=== PATIENT | female | born 1965 | race Caucasian/White ===

== ENCOUNTER 2017-07-31 21:15 | Emergency (ER) | payer OTHER ==
[~2017-07-31] VITALS: Ht 167.6 cm; Wt 56.7 kg
[~2017-07-31 21:15] MED LIST: ALBU90OI INH; ALEVE220 MG PO; CHLO25 PO; CLON.1 PO; CLON.2 PO; CLON.3 PO; Crutch1 EACH MISC; FOLI1 PO; FURO40 PO; GABA600 PO; GABA800 PO; LORA1 PO; METPRE4DP PO; Neurontin 100100 MG PO; Neurontin 300300 MG PO; Neurontin800 MG PO; Norco 5-325 Ta1 EACH PO; ONDA4ODT MM; POTA10T PO; POTA8 PO; PROM25 PO; Percocet 5-3251 EACH PO; Prednisone20 MG PO; Prilosec20 MG PO; Protonix40 MG PO; THERA M PLUS T1 EACH PO; THIA100 PO; Vibramycin100 MG PO; Vitamin B-650 MG PO; Zofran Odt4 MG SL
[2017-07-31 21:37] LABS: BASOPHILS ABSOLUTE AUTO 0.12 K/mm3 (0.00-0.23); BASOPHILS PERCENT AUTO 2 % (0-2); EOSINOPHILS ABSOLUTE AUTO 0.23 K/mm3 (0.00-0.68); EOSINOPHILS PERCENT AUTO 3 % (0-6); Hematocrit 48.2 % (33.0-51.0); Hemoglobin 16.6 g/dL (11.5-16.0); IMMATURE GRAN ABSOLUTE AUTO 0.02 K/mm3 (0.00-0.10); IMMATURE GRAN PERCENT AUTO 0 % (0-1); LYMPHOCYTES ABSOLUTE AUTO 3.05 K/mm3 (0.84-5.20); LYMPHOCYTES PERCENT AUTO 45 % (21-46); MONOCYTES ABSOLUTE AUTO 0.42 K/mm3 (0.16-1.47); MONOCYTES PERCENT AUTO 6 % (4-13); Mean Corpuscular HGB 31.9 pg (26.0-34.0); Mean Corpuscular HGB Conc 34.4 g/dL (31.5-36.5); Mean Corpuscular Volume 93 fL (80-100); Mean Platelet Volume 9.4 fL (9.1-12.4); NEUTROPHILS ABSOLUTE AUTO 2.93 K/mm3 (1.96-9.15); NEUTROPHILS PERCENT AUTO 43 % (41-73); Platelet Count 403 K/mm3 (150-400); RDW Coefficient Variation 15.4 % (11.7-14.2); RDW Standard Deviation 52.8 fL (35.1-46.3); White Blood Cell Count 6.77 K/mm3 (4.00-11.30)
[2017-07-31 21:57] LABS: Alanine Aminotransfer (ALT/SGP 55 U/L (12-78); Albumin, Blood 3.4 g/dL (3.4-5.0); Albumin/Globulin Ratio 0.6 (0.8-1.8); Alk Phos 141 U/L (50-136); Anion Gap 11 mmol/L (6-16); Aspartate Aminotrans (AST/SGOT 76 U/L (12-37); Bilirubin, Total 0.2 mg/dL (0.1-1.0); Blood Urea Nitrogen 2 mg/dL (8-24); Bun/Creatinine Ratio 5.5 (12.0-20.0); CO2, Blood 23 mmol/L (21-32); Calcium, Blood 8.4 mg/dL (8.5-10.1); Chloride, Blood 101 mmol/L (98-108); Creatinine, Blood 0.36 mg/dL (0.40-1.00); Globulin, Blood 5.4 g/dL (2.2-4.0); Glomerular Filtration Rate >60 (60-); Glucose, Blood 110 mg/dL (70-99); Potassium, Blood 4.1 mmol/L (3.5-5.5); Sodium, Blood 135 mmol/L (136-145); Total Protein, Blood 8.8 g/dL (6.4-8.2)
[2017-07-31 22:03] LABS: Ethanol (Alcohol), Blood, Med 416 mg/dL
== END 2017-08-01 00:22 | disposition home or self-care (01) ==
LOC: ER 21:15
PROVIDERS: Emergency Medicine
DX: S01.81XA Laceration without foreign body of other part of head, initial encounter (principal); S01.01XA Laceration without foreign body of scalp, initial encounter; F10.129 Alcohol abuse with intoxication, unspecified; Z88.6 Allergy status to analgesic agent; Z88.8 Allergy status to other drugs, medicaments and biological substances; Z79.899 Other long term (current) drug therapy; F17.210 Nicotine dependence, cigarettes, uncomplicated; Y90.8 Blood alcohol level of 240 mg/100 ml or more; W10.8XXA Fall (on) (from) other stairs and steps, initial encounter
CPT/HCPCS: 12001; 36415; 70450; 72125; 80053; 85025; 90471; 90714; 96361; 96374; 99284; G0480; J1170; J3010; J7030

== ENCOUNTER 2018-08-26 14:05 | Inpatient (IN) | payer OTHER ==
[~2018-08-26] VITALS: Ht 162.6 cm; Wt 56.0 kg
[2018-08-26 14:30] LABS: PCO2 Arterial 40.3 mmHg (35-45); PO2 Arterial 50.6 mmHg (80-100); pH Blood Arterial 7.55 (7.35-7.45)
[2018-08-26] MEDS ORDERED: POTA8 PO (14:51)
[2018-08-26 14:52] LABS: Source, Urine Catheter
[2018-08-26 14:59] LABS: Appearance, Urine Hazy (Clear); Blood, Urine 3+ (Neg); Color, Urine Amber (P-Yellow); Glucose Qualitative, Urine Neg (Neg); Ketones, Urine 4+ (Neg); Leukocyte Esterase, Urine 1+ (Neg); Nitrite, Urine Pos (Neg); Protein, Urine 3+ (Neg); Urobilinogen, Urine 4+ (Normal); pH, Urine 6.5 (5.0-8.0)
[2018-08-26 15:00] LABS: CPK Creatine Kinase 63 U/L (26-193); Ethanol (Alcohol), Blood, Med <3 mg/dL; Troponin I 0.017 ng/mL (0.000-0.040)
[2018-08-26 15:23] LABS: U Amphetamine Screen Not Detected; U Barbituate Screen Not Detected; U Benzodiazapine Screen Not Detected; U Buprenorphine Screen Not Detected; U Cannabinoids Screen Not Detected; U Cocaine Screen Not Detected; U Methadone Screen Not Detected; U Methamphetamine Screen Not Detected; U Opiates Screen Not Detected; U Oxycodone Screen Not Detected; U Phencyclidine Screen Not Detected; U Propoxyphene Screen Not Detected
[2018-08-26 15:38] LABS: Alanine Aminotransfer (ALT/SGP 63 U/L (12-78); Albumin, Blood 2.8 g/dL (3.4-5.0); Albumin/Globulin Ratio 0.5 (0.8-1.8); Alk Phos 279 U/L (50-136); Anion Gap 16 mmol/L (6-16); Aspartate Aminotrans (AST/SGOT 261 U/L (12-37); Beta-hydroxybutyrate 44.1 mg/dL (0.2-2.8); Bilirubin, Total 10.4 mg/dL (0.1-1.0); Blood Urea Nitrogen 7 mg/dL (8-24); Bun/Creatinine Ratio 16.5 (12.0-20.0); CO2, Blood 32 mmol/L (21-32); Calcium, Blood 9.5 mg/dL (8.5-10.1); Chloride, Blood 80 mmol/L (98-108); Creatinine, Blood 0.42 mg/dL (0.40-1.00); Globulin, Blood 5.4 g/dL (2.2-4.0); Glomerular Filtration Rate >60 (60-); Glucose, Blood 146 mg/dL (70-99); Potassium, Blood 1.5 mmol/L (3.5-5.5); Sodium, Blood 128 mmol/L (136-145); Total Protein, Blood 8.2 g/dL (6.4-8.2)
[2018-08-26 15:42] LABS: Bilirubin, Urine 3+ (Neg)
[2018-08-26 15:47] LABS: Amorphous Mod (0-Heavy); Squamous Epithelial Cells Few /hpf (Few); White Blood Cells, Urine 0-2 /hpf (0-5)
[2018-08-26 15:48] LABS: Bacteria Many /hpf
[2018-08-26 17:20] LABS: BASOPHILS ABSOLUTE AUTO 0.03 K/mm3 (0.00-0.23); BASOPHILS PERCENT AUTO 1 % (0-2); EOSINOPHILS PERCENT AUTO 0 % (0-6); IMMATURE GRAN ABSOLUTE AUTO 0.26 K/mm3 (0.00-0.10); IMMATURE GRAN PERCENT AUTO 4 % (0-1); LYMPHOCYTES ABSOLUTE AUTO 0.55 K/mm3 (0.84-5.20); LYMPHOCYTES PERCENT AUTO 8 % (21-46); MONOCYTES ABSOLUTE AUTO 0.87 K/mm3 (0.16-1.47); MONOCYTES PERCENT AUTO 13 % (4-13); Mean Corpuscular Volume 91 fL (80-100); NEUTROPHILS ABSOLUTE AUTO 4.86 K/mm3 (1.96-9.15); NEUTROPHILS PERCENT AUTO 74 % (41-73); NRBC ABSOLUTE 0.14 K/mm3 (0.00-0.02); NRBC Auto 2.1 /100 WBC (0.0-0.2); Platelet Count 76 K/mm3 (150-400); RDW Coefficient Variation 14.1 % (11.7-14.2); RDW Standard Deviation 46.6 fL (35.1-46.3); Red Blood Cell Count 3.95 M/mm3 (3.80-5.20); White Blood Cell Count 6.57 K/mm3 (4.00-11.30)
[2018-08-26 17:21] LABS: Hemoglobin 13.9 g/dL (11.5-16.0); Mean Corpuscular HGB 30.9 pg (26.0-34.0)
[2018-08-26 17:22] LABS: Mean Corpuscular HGB Conc 33.9 g/dL (31.5-36.5)
[2018-08-26 17:49] LABS: International Normalized Ratio 1.76; Prothrombin Time Results 17.7 Sec (9.7-11.5)
--- NOTE | 2018-08-26 18:34 | NUR ---
ADMIT PT ARRIVES TO ICU 7 AT 1650 VIA ER GURNEY. PT UNRESPONSIVE EVEN TO STERNAL RUB, ON 15L/MIN NRB, SPO2 >90%, MONITOR SHOWING SINUS RHYTHM WITH HR 90'S, SBP 80-90'S. CALL TO DR. MAHAN WITH CONCERNS OF AIRWAY PROTECTION - ORDERS RECEIVED TO CONSULT DR. AMES. DR. AMES TO BEDSIDE TO EVALUATE PT - STATES DOES NOT WANT TO INTUBATE AT THIS TIME R/T HIGH POTENTIAL FOR CODING DURING INTUBATION WITH CURRENT LAB VALUES OF PT, WILL CONTINUE TO MONITOR PT'S RESPIRATORY STATUS CLOSELY. PT HAS 20G IV TO LEFT CHEST AND 20G FS TO R AC. NS c KCL STARTED PER ORDERS, IVPB KCL STARTED PER ORDERS. SEE ASSESSMENT AND CHART PHOTOS FOR SKIN CONCERNS. TEMP LENZ PROBE PLACED. NG TUBE PLACED TO L NARE. PT'S OXYGEN HAS BEEN TITRATED DOWN TO 4L/MIN NC WITH SPO2 >90%. PT'S KYLEIGH AT BEDSIDE, UPDATED ON PLAN OF CARE. WILL CONTINUE TO MONITOR PT AND GIVE HANDOFF REPORT TO ONCOMING SHIFT.
--- NOTE | 2018-08-26 20:16 | NUR ---
ASSUMED CARE BEDSIDE REPORT RECIEVED. PT IS LAYING IN BED UNRESPONSIVE TO VOICE OR NOXIOUS STIMULI. PT HAS OCCASIONAL GROSS MOVEMENT OF BLE. PT ON 4L O2 NC, SPO2 >90%, RR 26-30. SBP 80-90'S WITH MAP MAINTAINING >65. NGT IN PLACE TO LIS WITH BILE OUTPUT NOTED. NS WITH 20 MEQ K INFUSING AT 150 ML/HR, AND POTASSIUM IVPB INFUSING. IV TO LEFT UPPER CHEST C/D/I, FLUSHING WELL. LENZ IN PLACE WITH DARK YELLOW OUTPUT NOTED. PT WITH SCATTERED BRUISING FROM RECENT FALLS PER . SEE PHOTOS IN CHART. PT APPEARS MILDLY JAUNDICED AND FRAIL OVERALL. DR AMES UPDATED ON PT CONDITION. OK TO CHANGE LACTULOSE TO PER NG TUBE AT THIS TIME. WILL CONTINUE TO MONITOR.
[2018-08-26 23:09] LABS: Anion Gap 13 mmol/L (6-16); Blood Urea Nitrogen 9 mg/dL (8-24); Bun/Creatinine Ratio 24.9 (12.0-20.0); CO2, Blood 31 mmol/L (21-32); Calcium, Blood 9.5 mg/dL (8.5-10.1); Chloride, Blood 90 mmol/L (98-108); Creatinine, Blood 0.36 mg/dL (0.40-1.00); Glomerular Filtration Rate >60 (60-); Glucose, Blood 171 mg/dL (70-99); Potassium, Blood 2.4 mmol/L (3.5-5.5); Sodium, Blood 134 mmol/L (136-145)
--- NOTE | 2018-08-27 05:43 | NUR ---
SHIFT SUMMARY NO ACUTE CHANGES THIS SHIFT. PT HAS REMAINED UNCHANGED IN RESPONSE TO NOXIOUS STIMULI. PT WITH OCCASIONAL MOVEMENTS IN BLE. PT WITH PRODUCTIVE COUGH WITH THICK YELLOW/WHITE SPUTUM. PT ON 4L O2 VIA OXYMIZER. VITAL SIGNS HAVE REMAINED STABLE. SBP 80-90'S THROUGHOUT THE SHIFT. NGT REMAINS IN PLACE, PT RECIEVING LACTULOSE PER TUBE. LENZ REMAINS IN PLACE WITH DARK KEVIN OUTPUT NOTED. NS WITH 20 MEQ K INFUSING AT 150 ML/HR. SPOUSE HAS REMAINED AT BEDSIDE. WILL CONTINUE TO MONITOR AND REPORT OFF TO ONCOMING RN.
[2018-08-27 06:03] LABS: International Normalized Ratio 1.7; Prothrombin Time Results 17.2 Sec (9.7-11.5)
[2018-08-27 06:29] LABS: Alanine Aminotransfer (ALT/SGP 54 U/L (12-78); Albumin, Blood 2.4 g/dL (3.4-5.0); Albumin/Globulin Ratio 0.5 (0.8-1.8); Alk Phos 224 U/L (50-136); Anion Gap 10 mmol/L (6-16); Aspartate Aminotrans (AST/SGOT 205 U/L (12-37); Bilirubin, Total 10.4 mg/dL (0.1-1.0); Blood Urea Nitrogen 7 mg/dL (8-24); Bun/Creatinine Ratio 21.5 (12.0-20.0); CO2, Blood 29 mmol/L (21-32); Calcium, Blood 8.9 mg/dL (8.5-10.1); Chloride, Blood 101 mmol/L (98-108); Creatinine, Blood 0.33 mg/dL (0.40-1.00); Globulin, Blood 4.5 g/dL (2.2-4.0); Glomerular Filtration Rate >60 (60-); Glucose, Blood 151 mg/dL (70-99); Potassium, Blood 2.4 mmol/L (3.5-5.5); Sodium, Blood 140 mmol/L (136-145); Total Protein, Blood 6.9 g/dL (6.4-8.2)
[2018-08-27 06:53] LABS: Hematocrit 32.2 % (33.0-51.0); Mean Corpuscular Volume 93 fL (80-100); Mean Platelet Volume 11.5 fL (9.1-12.4); NRBC ABSOLUTE 0.08 K/mm3 (0.00-0.02); NRBC Auto 0.7 /100 WBC (0.0-0.2); Platelet Count 76 K/mm3 (150-400); RDW Coefficient Variation 14.6 % (11.7-14.2); RDW Standard Deviation 49.6 fL (35.1-46.3); Red Blood Cell Count 3.45 M/mm3 (3.80-5.20); White Blood Cell Count 11.81 K/mm3 (4.00-11.30)
[2018-08-27 06:55] LABS: Hemoglobin 12.1 g/dL (11.5-16.0); Mean Corpuscular HGB 35.1 pg (26.0-34.0); Mean Corpuscular HGB Conc 37.6 g/dL (31.5-36.5)
[2018-08-27 06:59] LABS: BAND PERCENT MAN 15 % (0-8); BASOPHILS PERCENT MAN 0 % (0-2); EOSINOPHILS PERCENT MAN 0 % (0-6); LYMPHOCYTES ABSOLUTE MAN 1.06 K/mm3 (0.84-5.20); LYMPHOCYTES PERCENT MAN 9 % (21-46); MONOCYTES ABSOLUTE MAN 2.12 K/mm3 (0.16-1.47); MONOCYTES PERCENT MAN 18 % (4-13); MYELOCYTE ABSOLUTE MAN 0.11 K/mm3 (0.00-0.00); MYELOCYTE PERCENT MAN 1 % (0-0); SEG NEUTROPHILS PERCENT MAN 57 % (41-73); TOTAL CELLS COUNTED 100
[2018-08-27 07:54] LABS: Beta-hydroxybutyrate 12.2 mg/dL (0.2-2.8)
[2018-08-27 08:07] LABS: Potassium, Blood 1.9 mmol/L (3.5-5.5)
--- NOTE | 2018-08-27 08:15 | NUR ---
PT OBTUNDED. MASCORRO, SOMEWHAT RESTLESS IN BED. DOES NOT OPEN EYES. SWALLOW AND GAG PRESENT, WEAK COUGH. OXYMIZER AT 4L. K+ CRITICAL LOW AT 1.9, DR AMES NOTIFIED. K-RIDER 60MEQ INFUSING PER ORDERS. AT BEDSIDE.
--- NOTE | 2018-08-27 10:43 | NUR ---
DR MEYERS IN TO SEE PT, UPDATE GIVEN.
--- NOTE | 2018-08-27 13:43 | NUR ---
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 Pt is resting in bed, , Iglesia at bedside. Reviewed plan of care with Iglesia. He is very concerned about her, just wants her to get better. He states that patient is "darn near an alcoholic, I am too." Reviewed care with Hue, nurse. She states that they expect the pt to go through ETOH withdrawal soon, if the patient drinks that much. She is currently obtunded. Hue is concerned that the patient will require intubation. Will follow along with patient and family. I introduced Palliative Care to Iglesia and explained our function in the hospital. He is grateful for the support.
--- NOTE | 2018-08-27 16:54 | NUR ---
PT CONTINUES TO SLEEP, RESTLESS IN BED, TURNS SELF FROM SIDE TO SIDE FREQUENTLY, MOVES LEGS AROUND FREQUENTLY. WILL ATTEMPT TO OPEN EYES TO COMMAND, ATTEMPTS TO FOLLOW SIMPLE COMMANDS. PT HAS HAD FREQUENT LIQ STOOLS; FLEXISEAL PLACED W/O DIFF. PER DR AMES; HOLD LACTULOSE AFTER 2 STOOLS. K+ REMAINS CRITICALLY LOW. DR AMES NOTIFED, K+ RIDER INFUSING. PICC PLACED W PT'S HUSBANDS CONSENT. PICC TO SARAH; PLACED W/O DIFFICULTY. PT STARTING TO PULL AT O2 AND NG; MAY NEED TO BE RESTRAINED, PT'S NOTIFIED AND IS AGREEABLE.
--- NOTE | 2018-08-27 19:24 | NUR ---
PT REMAINS RESTLESS, NO IMPROVEMENT IN NEUROLOGICAL STATUS FROM LAST ASSESSMENT. O2 DECREASED TO 2L VIA OXYMIZER. REMAINS AT BEDSIDE.
--- NOTE | 2018-08-27 20:19 | NUR ---
ASSUMED CARE BEDSIDE REPORT RECIEVED. PT IS RESTING QUIETLY UPON ENTERING ROOM. PT OPENS EYES TO VERBAL STIMULI AND IS ABLE TO SPEAK SOME WORDS. PT IS ABLE TO SQUEEZE HANDS UPON COMMAND. VITAL SIGNS STABLE AT THIS TIME, PT ON 2L O2 OXYMIZER. PT WITH SBP CONSISTENTLY 80-90'S, MAP >65. NGT IN PLACE TO LIS. PT WITH PICC TO SARAH WITH LR INFUSING AT 100 ML/HR AND POTASSIUM IVPB INFUSING. LENZ IN PLACE WITH DARK YELLOW/KEVIN OUTPUT NOTED. RECTAL TUBE IN PLACE WITH LOOSE OUTPUT NOTED. PT RESTLESS IN BED AND IS ABLE TO REPOSITION SELF INDEPENDENTLY FOR COMFORT. SPOUSE AT BEDSIDE. WILL CONTINUE TO MONITOR.
[2018-08-27 23:50] LABS: Magnesium, Blood 2.1 mg/dL (1.6-2.4)
--- NOTE | 2018-08-28 04:33 | NUR ---
SHIFT SUMMARY NO ACUTE CHANGES THIS SHIFT. PT CONTINUES TO IMPROVE WITH RESPONSE TO COMMANDS AND IS ABLE TO SPEAK WORDS CLEARLY. PT HAS BEEN RESTING QUIETLY THROUGHOUT MOST OF THE SHIFT. PT HAS REPOSITIONED SELF IN BED INDEPENDENTLY AND ASSISTS WITH TURNS WELL. PT TRANSITIONED TO ROOM AIR, VITAL SIGNS HAVE REMAINED STABLE. NGT REMAINS IN PLACE. PICC TO SARAH C/D/I WITH LR INFUSING AT 100 ML/HR AND POTASSIUM IVPB. LENZ IN PLACE WITH GOOD AMOUNT OF YELLOW URINE OUTPUT NOTED. RECTAL TUBE REMAINS IN PLACE WITH LIQUID BROWN OUTPUT NOTED. LIQUID STOOL LEAKING AROUND RECTAL TUBE AT TIMES. PT SPOUSE HAS REMAINED AT BEDSIDE. WILL CONTINUE TO MONITOR AND REPORT OFF TO ONCOMING RN.
[2018-08-28 07:24] LABS: Base Excess Venous 22.2 mmol/L; Bicarbonate Venous 43.5 mmol/L (24.0-30.0); PCO2 Venous 51.1 mmHg (38-42); pH Blood Venous 7.55 (7.34-7.37)
--- NOTE | 2018-08-28 07:43 | NUR ---
DR AMES CALLED TO NOTIFY OF PT'S HYPOTENSION AND VBG PH OF 7.55. 1 LITER LR FLUID BOLUS ORDERED.
[2018-08-28 07:48] LABS: International Normalized Ratio 1.59; Prothrombin Time Results 16.2 Sec (9.7-11.5)
[2018-08-28 07:53] LABS: BASOPHILS ABSOLUTE AUTO 0.07 K/mm3 (0.00-0.23); BASOPHILS PERCENT AUTO 1 % (0-2); EOSINOPHILS ABSOLUTE AUTO 0.11 K/mm3 (0.00-0.68); EOSINOPHILS PERCENT AUTO 1 % (0-6); IMMATURE GRAN ABSOLUTE AUTO 0.31 K/mm3 (0.00-0.10); IMMATURE GRAN PERCENT AUTO 2 % (0-1); LYMPHOCYTES ABSOLUTE AUTO 1.78 K/mm3 (0.84-5.20); LYMPHOCYTES PERCENT AUTO 13 % (21-46); MONOCYTES PERCENT AUTO 11 % (4-13); Mean Corpuscular Volume 93 fL (80-100); Mean Platelet Volume 11.1 fL (9.1-12.4); NEUTROPHILS ABSOLUTE AUTO 9.84 K/mm3 (1.96-9.15); NEUTROPHILS PERCENT AUTO 72 % (41-73); NRBC ABSOLUTE 0.09 K/mm3 (0.00-0.02); NRBC Auto 0.7 /100 WBC (0.0-0.2); Platelet Count 74 K/mm3 (150-400); RDW Coefficient Variation 14.7 % (11.7-14.2); RDW Standard Deviation 48.6 fL (35.1-46.3); Red Blood Cell Count 3.28 M/mm3 (3.80-5.20); White Blood Cell Count 13.61 K/mm3 (4.00-11.30)
[2018-08-28 07:57] LABS: Alanine Aminotransfer (ALT/SGP 46 U/L (12-78); Albumin, Blood 2.1 g/dL (3.4-5.0); Albumin/Globulin Ratio 0.5 (0.8-1.8); Alk Phos 212 U/L (50-136); Anion Gap 8 mmol/L (6-16); Aspartate Aminotrans (AST/SGOT 169 U/L (12-37); Blood Urea Nitrogen 2 mg/dL (8-24); Bun/Creatinine Ratio 6.6 (12.0-20.0); CO2, Blood 39 mmol/L (21-32); Calcium, Blood 9.3 mg/dL (8.5-10.1); Chloride, Blood 102 mmol/L (98-108); Globulin, Blood 4.3 g/dL (2.2-4.0); Glomerular Filtration Rate >60 (60-); Glucose, Blood 117 mg/dL (70-99); Potassium, Blood 2.5 mmol/L (3.5-5.5); Sodium, Blood 149 mmol/L (136-145); Total Protein, Blood 6.4 g/dL (6.4-8.2)
--- NOTE | 2018-08-28 08:10 | NUR ---
PT AWAKENS TO VOICE. PT ASKS FOR A DRINK OF WATER. MOUTH SWABBED. PT C/O NAUSEA. WILL GIVE ZOFRAN. LEFT EYE CRUSTED OVER AND RED; WARM PACK APPLIED. LITER BOLUS INFUSING.
[2018-08-28 08:12] LABS: Phosphorus, Blood <0.1 mg/dL (2.5-4.9)
--- NOTE | 2018-08-28 08:32 | NUR ---
PT NOW IN A FLUTTER; IN WHICH HE HAS A HISTORY OF. BP STABALIZING. DOPAMINE REMAINS AT 20MCG. WILL TITRATE DOWN TOLERATED
--- NOTE | 2018-08-28 08:54 | NUR ---
ADDITIONAL 500CC LR BOLUS ORDERED AND STARTED.
[2018-08-28 09:00] LABS: Hemoglobin 11.5 g/dL (11.5-16.0); Mean Corpuscular HGB 35.1 pg (26.0-34.0)
[2018-08-28 09:01] LABS: Mean Corpuscular HGB Conc 33.8 g/dL (31.5-36.5)
--- NOTE | 2018-08-28 09:53 | NUR ---
DR AMES AND DR MEYERS IN TO SEE PT, SEE NEW ORDERS. PT INCONTINENT OF LARGE LIQ STOOL. FLEXISEAL LEAKING; REMOVED. ATTENDS PLACED.
--- NOTE | 2018-08-28 11:42 | NUR ---
PT HYPOTENSIVE W MAP IN 40'S. DR AMES NOTIFIED; LEVOPHED GTT TO START.
--- NOTE | 2018-08-28 12:12 | NUR ---
LEVOPHED STARTED AT 5MCG TO KEEP MAP >65. PT SLEEPING, APPEARS COMFORTABLE
--- NOTE | 2018-08-28 13:13 | NUR ---
LEFT EYE CRUSTED OVER; CLEANED W WARM COMPRESS, DROPS APPLIED. ATTENDS CLEAN. PT DENIES C/O PAIN. NO SIGNS OF ETOH W/D OF YET. PT ORIENTED TO SELF AND PLACE. UNABLE TO STATE [place] OR YEAR. LEVOPHED AT 5MCG.
[2018-08-28 14:40] LABS: Hematocrit 29.8 % (33.0-51.0); Hemoglobin 11.1 g/dL (11.5-16.0)
--- NOTE | 2018-08-28 14:58 | NUR ---
PT BECOMING MORE IRRITABLE, ASKING FOR WATER CONSTANTLY, DIFFICULT TO REDIRECT. AT BEDSIDE. PT REMAINS CONFUSED BUT ORIENTED TO SELF. PT HAS NOT TRIED TO CLIMB OUT OF BED AND HAS LEFT TUBES AND LINES ALONE.
--- NOTE | 2018-08-28 15:00 | NUR ---
RADIOLOGY REPORT FROM [facility]ST XRAY STATES PICC TIP IN RIGHT ATRIUM. XRAY REVIEWED WITH DR AMES. PICC APPEARS TO BE IN CAJ WHICH IS OPTIMAL PLACEMENT. NO ECTOPY NOTED. WILL LEAVE PICC AT 6CM EXPOSED.
[2018-08-28 15:07] LABS: Albumin, Blood 2.1 g/dL (3.4-5.0); Anion Gap 6 mmol/L (6-16); Blood Urea Nitrogen 2 mg/dL (8-24); Bun/Creatinine Ratio 8.4 (12.0-20.0); CO2, Blood 43 mmol/L (21-32); Calcium, Blood 8.5 mg/dL (8.5-10.1); Chloride, Blood 95 mmol/L (98-108); Creatinine, Blood 0.24 mg/dL (0.40-1.00); Glomerular Filtration Rate >60 (60-); Glucose, Blood 165 mg/dL (70-99); Phosphorus, Blood 0.8 mg/dL (2.5-4.9); Potassium, Blood 2.2 mmol/L (3.5-5.5); Sodium, Blood 144 mmol/L (136-145)
--- NOTE | 2018-08-28 15:29 | NUR ---
CRITICAL LOW K+ OF 2.2, AND PHOS 0.8. DR AMES NOTIFIED. [facility] R[facility] ORDERED
--- NOTE | 2018-08-28 20:30 | NUR ---
ASSUMED CARE BEDSIDE REPORT RECIEVED. PT IS RESTING QUIETLY IN BED. PT AWAKENS TO VERBAL STIMULI AND IS ABLE TO SPEAK WELL AND FOLLOW DIRECTIONS. PT IS CONFUSED AND LETHARGIC. PT IS CONTINUALLY ASKING FOR WATER DESPITE REDIRECTION AND EDUCATION. PT ON ROOM AIR. NGT IN PLACE TO LIS WITH BILE OUTPUT NOTED. PICC TO SARAH C/D/I WITH LR INFUSING AT 150 ML/HR, LEVOPHED AT 6 MCG/KG/MIN. KPHOS IVPB INFUSING. LENZ IN PLACE WITH YELLOW OUTPUT NOTED. PT CONTINUES TO HAVE LOOSE STOOL OUTPUT. PT SPOUSE AT BEDSIDE. WILL CONTINUE TO MONITOR.
[2018-08-28 22:01] LABS: Phosphorus, Blood 1.2 mg/dL (2.5-4.9); Potassium, Blood 2.3 mmol/L (3.5-5.5)
[2018-08-29 04:27] LABS: BASOPHILS ABSOLUTE AUTO 0.06 K/mm3 (0.00-0.23); BASOPHILS PERCENT AUTO 1 % (0-2); EOSINOPHILS ABSOLUTE AUTO 0.13 K/mm3 (0.00-0.68); EOSINOPHILS PERCENT AUTO 1 % (0-6); Hematocrit 28.6 % (33.0-51.0); Hemoglobin 10.5 g/dL (11.5-16.0); IMMATURE GRAN ABSOLUTE AUTO 0.44 K/mm3 (0.00-0.10); IMMATURE GRAN PERCENT AUTO 4 % (0-1); LYMPHOCYTES ABSOLUTE AUTO 2.29 K/mm3 (0.84-5.20); LYMPHOCYTES PERCENT AUTO 18 % (21-46); MONOCYTES ABSOLUTE AUTO 1.59 K/mm3 (0.16-1.47); MONOCYTES PERCENT AUTO 13 % (4-13); Mean Corpuscular HGB Conc 36.7 g/dL (31.5-36.5); Mean Corpuscular Volume 95 fL (80-100); Mean Platelet Volume 11.3 fL (9.1-12.4); NEUTROPHILS ABSOLUTE AUTO 7.94 K/mm3 (1.96-9.15); NEUTROPHILS PERCENT AUTO 64 % (41-73); NRBC ABSOLUTE 0.14 K/mm3 (0.00-0.02); NRBC Auto 1.1 /100 WBC (0.0-0.2); Platelet Count 57 K/mm3 (150-400); RDW Coefficient Variation 15.3 % (11.7-14.2); RDW Standard Deviation 52.1 fL (35.1-46.3); White Blood Cell Count 12.45 K/mm3 (4.00-11.30)
[2018-08-29 04:46] LABS: Anion Gap 9 mmol/L (6-16); Blood Urea Nitrogen 1 mg/dL (8-24); Bun/Creatinine Ratio 3.6 (12.0-20.0); CO2, Blood 40 mmol/L (21-32); Calcium, Blood 7.2 mg/dL (8.5-10.1); Chloride, Blood 90 mmol/L (98-108); Creatinine, Blood 0.28 mg/dL (0.40-1.00); Glomerular Filtration Rate >60 (60-); Glucose, Blood 129 mg/dL (70-99); Magnesium, Blood 1.1 mg/dL (1.6-2.4); Phosphorus, Blood 1.4 mg/dL (2.5-4.9); Sodium, Blood 139 mmol/L (136-145)
--- NOTE | 2018-08-29 06:09 | NUR ---
SHIFT SUMMARY NO ACUTE CHANGES THIS SHIFT. PT HAS CONTINUED TO IMPROVE WITH MENTATION. PT IS MORE VERBAL AND IS ORIENTED TO LOCATION, SELF, AND FOLLOWING COMMANDS. PT IS PLEASANT, BUT IS HYPER FOCUSED ON ASKING FOR WATER. PT EDUCATED ABOUT BEING NPO MULTIPLE TIMES. NGT IN PLACE TO LIS WITH BILE OUTPUT NOTED. PT PLACED ON 2L O2 NC WHILE SLEEPING. VITAL SIGNS HAVE REMAINED STABLE WITH LEVOPHED INFUSING AT 6 MCG/MIN. LR INFUSING AT 150 ML/HR. KPHOS AND MAG IVPB INFUSING PER ORDERS. LENZ IN PLACE WITH GOOD URINE OUTPUT NOTED. ATTENDS IN PLACE. SPOUSE HAS REMAINED AT BEDSIDE THROUGHOUT THE NIGHT. WILL CONTINUE TO MONITOR AND REPORT OFF TO ONCOMING RN.
--- NOTE | 2018-08-29 07:37 | NUR ---
AM ASSESSMENT: PT IS ALERT AND ORIENTED TO SELF/FAMILY. UNSURE OF PLACE/DATE/SITUATION. PT CONTINUOUSLY ASKING FOR WATER, BUT IS COOPERATIVE WITH CARE. ANSWERS QUESTIONS SLOWLY BUT APPRORIATELY. NO C/O PAIN THIS AM. ASSISTS WITH REPOSITIONING IN BED. LUNGS ARE CLEAR BUT DIMINISHED IN THE BILATERAL BASES AND RML. SATS >90% ON RA. HR REGULAR, SR-90'S RANGE. TITRATED LEVOPHED @ 6MCG/MIN TO MAINTAIN MAPS OF >65. PICC IN THE RT UA WITH LR @ 150ML/HR. SCD'S TO LE'S. ABD IS FLAT/SOFT/NON-TENDER TO PALPATION. BT'S HYPOACTIVE. NGT TO LIS AT THIS TIME. WILL DISCUSS A POSSIBLE SPEECH EVALUATION WITH TODAY. PT IS IN ATTENDS FOR INCONTINENCE. NO BM AT THIS TIME. LENZ PROBE DRAINING CLEAR, YELLOW URINE TO GRAVITY. SCATTERRED ECCHYMOSIS TO EXTREMITIES R/T RECENT FALLS AT HOME.
--- NOTE | 2018-08-29 11:09 | NUR ---
PT UPDATE: DISCUSSED OBTAINING A SPEECH EVALUATION, PT REMAINS NPO FOR CONCERNS OF ASPIRATION. PT CONTINUALLY ASKING FOR WATER. SPEECH EVAL PLACED AT THIS TIME AFTER DISCUSSING WITH DR BURRIS.
--- NOTE | 2018-08-29 12:52 | NUR ---
DR BURRIS IN TO ASSESS PT. DISCUSSED CONTINUED HYPOKALEMIA. DR BURRIS TO LOOK OVER POTASSIUM VALUES AND POTENTIALLY ORDER MORE. SEE NEW ORDERS. WILL F/U WITH 1600 LABS TO F/U ON ELECTROLYTES.
--- NOTE | 2018-08-29 13:05 | NUR ---
GABINO FROM PALLATIVE CARE IN TO VISIT W/ PT AND FAMILY.
--- NOTE | 2018-08-29 13:09 | NUR ---
Elena awakens easily to voice, but is fixated on getting something to drink which she cannot have. Spouse, Iglesia, at bedside and said very little. Pt is LDS, but declined offer to contact yazidism and prayer. I am uncertain she is able to hold lucid conversation about why she is hospitalized. I will continue to attempt counselor manager in coming days as schedule permits.
--- NOTE | 2018-08-29 16:09 | NUR ---
SHIFT SUMMARY: PT REMAINS DROWSY AND ONLY ORIENTED TO SELF/FAMILY. PT KEEPS EYES CLOSED AT MOST TIMES AND SEEMS TO HAVE DIFFICULTY OPENING THEM AND KEEPING THEM OPEN. PT ANSWERS QUESTIONS APPROPRIATELY AND ABLE TO FOLLOW SIMPLE COMMANDS. MOVES SELF IN BED AND WILL ASSIST WITH TURNS. NO C/O PAIN T/O THIS SHIFT. LUNGS ARE CLEAR BUT DIMINISHED IN THE BASES BILATERALLY. HR REGULAR, SR-80'S. SCD'S BILATERALLY. PT REMAINS HYPOTENSIVE AND ON LEVOPHED THAT REMAINS AT 6MCG/MIN. IVF'S D/C'D THIS SHIFT. ABD IS SOFT/FLAT/WITH SOME TENDERNESS NOTED OVER RUQ. SWALLOW EVALUATION DONE THIS SHIFT AND PT STARTED OF SOFT, BITE SIZED DIET. PT DOES HAVE SOME COUGHING/THROAT CLEARING AT TIMES W/THIN LIQUID INTAKE. NGT CLAMPED AT THIS TIME, SINCE STARTING TO FEED PT. NO BM THIS SHIFT. PT CONTINUING TO GET LACTULOSE, HOLD IF MORE THAN 3 BM'S A DAY. MEPILEX IN PLACE TO COCCYX. PT CONTINUING TO RECIEVE ELECTROLYTE REPLACEMENT FOR LOW K, PHOS, AND MG. WILL RECHECK ELECTROLYTES WHEN 100MEQ OF POTASSIUM COMPLETE.
--- NOTE | 2018-08-29 19:15 | NUR ---
ASSUMING CARE OF PT AT THIS TIME. PT REPORT RECEIVED AT BEDSIDE WITH OFFGOING NURSE, CHARISMA AMAYA. PT LAYING IN BED, SLEEPING UPON ENTERING THE ROOM. PT'S AT BEDSIDE. VS STABLE - SEE VS FS. PT DOES NOT APPEAR TO BE IN DISTRESS AT THIS TIME. WILL REVIEW PLAN OF CARE.
--- NOTE | 2018-08-29 19:26 | NUR ---
REPORTED OFF TO JOSE LUIS GRAHAM WHOM WILL ASSUME CARE OF THIS PT.
--- NOTE | 2018-08-29 19:30 | NUR ---
ASSESSMENT PT CALM, QUIET, COOPERATIVE WITH PT CARE, IRRITABLE, FLAT AFFECT, CONFUSED, FORGETFUL, FOLLOWS COMMANDS, SPONT OPEN EYES, TRACKS WITH EYES, RESPONDS TO VERBAL STIMULI, ABLE TO ANSWER MOST QUESTIONS, SLOW TO RESPOND. PT A&O TO SELF, FAMILY, PLACE. PT UNABLE TO STATE DATE/TIME/EVENT. SENSATION INTACT. PT DENIES N/T. PT MASCORRO. GENEARLIZED WEAKNESS NOTED. PT REQUIRES REINFORCEMENT TO ASSIST WITH PT CARE AND TURNS. PT ABLE TO ASSIST WITH TURNS. NO S/SX OF PAIN/DISCOMFORT NOTED. PT DENIES PAIN/DISCOMFORT AT THIS TIME. LUNGS CLEAR, DIMINISHED MIDDLE AND LOWER LOBES. SHALLOW BREATHING. PT ON RA. OXYSAT >95%. RR 18. DENIES SOB AT REST. NO DYSPNEA WITH EXERTION. OCC WEAK NONPRODUCTIVE COUGH. AFEBRILE. NSR. HR 80'S. BP STABLE (SEE VS FS) WHILE ON LEVOPHED DRIP. WILL TITRATE LEVOPHED DRIP TO EFFECT. STRONG RADIAL PULSES. FAINT TIBIAL AND PEDAL PULSES. WARM, PALE BUE'S. COOL, PALE BLE'S. HYPOACTIVE BT X4 QUADRANTS. ABD MOD DIST, SOFT, NONTENDER. NO N/V. NG TUBE IN PLACE - CLAMPED. PER REPORT - NG TUBE REMAINS IN PLACE D/T ASPIRATION PRECAUTIONS. PT TOELRATING PO FLUIDS. BM: LARGE AMOUNTS OF BROWN LIQUID STOOL. F/C IN PLACE: DARK YELLOW URINE NOTED. PICC SARAH. NS TKO AT 10 ML/HR. KCL INFUSING.
--- NOTE | 2018-08-29 21:00 | NUR ---
DR. BURRIS CALLED DR. DELUNA AT THIS TIME. INFORMED DR. BURRIS OF PLT COUNT. DR. BURRIS D/C HEPARIN D/T DECREASING PLT AND ORDERED HIT ANTIBODY REFLEXIVE FOR AM LABS. PT C/O NAUSEA, NO VOMITING. DR. BURRIS ORDERED ZOFRAN PRN FOR N/V. PT C/O BACK PAIN. PT STATES HX OF CHRONIC BACK PAIN. DR. BURRIS ORDERED TRAMADOL PRN FOR PAIN. PT WILLING TO "TRY TRAMADOL". HOWEVER, PT STATES, "I REALLY WANT THE HARD STUFF". PT C/O "DIFFICULTY SLEEPING". DR. BURRSI ORDERED MELATONIN PRN. WAITING FOR VERIFICATION OF ORDERS FROM PHARMACY AT THIS TIME. DR. BURRIS INSTRUCTED TO CONT TO UTILIZE SCD'S FOR DVT PRO. SCD'S IN PLACE. DR. BURRIS ALSO INSTRUCTED TO KEEP NG IN PLACE D/T ASPIRATION PRECAUTIONS. DR. DELUNA ALSO INSTRUCTED TO ORDER KCL 40 MEQ PT AND KCL 100 MEQ IV IF MORNING POTASSIUM IS <3. WILL OBTAIN MORNING LABS AFTER COMPLETION OF KCL.
[2018-08-30 03:41] LABS: BASOPHILS ABSOLUTE AUTO 0.07 K/mm3 (0.00-0.23); BASOPHILS PERCENT AUTO 1 % (0-2); EOSINOPHILS ABSOLUTE AUTO 0.12 K/mm3 (0.00-0.68); EOSINOPHILS PERCENT AUTO 1 % (0-6); Hematocrit 29.4 % (33.0-51.0); Hemoglobin 10.6 g/dL (11.5-16.0); IMMATURE GRAN ABSOLUTE AUTO 0.37 K/mm3 (0.00-0.10); IMMATURE GRAN PERCENT AUTO 3 % (0-1); LYMPHOCYTES ABSOLUTE AUTO 2.17 K/mm3 (0.84-5.20); LYMPHOCYTES PERCENT AUTO 17 % (21-46); MONOCYTES ABSOLUTE AUTO 1.81 K/mm3 (0.16-1.47); MONOCYTES PERCENT AUTO 14 % (4-13); Mean Corpuscular HGB 34.9 pg (26.0-34.0); Mean Corpuscular HGB Conc 36.1 g/dL (31.5-36.5); Mean Corpuscular Volume 97 fL (80-100); Mean Platelet Volume 12.5 fL (9.1-12.4); NEUTROPHILS ABSOLUTE AUTO 8.28 K/mm3 (1.96-9.15); NEUTROPHILS PERCENT AUTO 65 % (41-73); NRBC ABSOLUTE 0.08 K/mm3 (0.00-0.02); NRBC Auto 0.6 /100 WBC (0.0-0.2); RDW Coefficient Variation 15.8 % (11.7-14.2); Red Blood Cell Count 3.04 M/mm3 (3.80-5.20); White Blood Cell Count 12.82 K/mm3 (4.00-11.30)
[2018-08-30 03:42] LABS: Platelet Count 45 K/mm3 (150-400)
[2018-08-30 03:58] LABS: Magnesium, Blood 2.4 mg/dL (1.6-2.4)
[2018-08-30 03:59] LABS: Alanine Aminotransfer (ALT/SGP 39 U/L (12-78); Albumin, Blood 1.9 g/dL (3.4-5.0); Albumin/Globulin Ratio 0.5 (0.8-1.8); Alk Phos 203 U/L (50-136); Anion Gap 8 mmol/L (6-16); Aspartate Aminotrans (AST/SGOT 120 U/L (12-37); Blood Urea Nitrogen <1 mg/dL (8-24); Bun/Creatinine Ratio Unable to Calculate (12.0-20.0); CO2, Blood 35 mmol/L (21-32); Calcium, Blood 7.1 mg/dL (8.5-10.1); Chloride, Blood 94 mmol/L (98-108); Creatinine, Blood 0.29 mg/dL (0.40-1.00); Glomerular Filtration Rate >60 (60-); Glucose, Blood 146 mg/dL (70-99); Phosphorus, Blood 1.5 mg/dL (2.5-4.9); Potassium, Blood 3.5 mmol/L (3.5-5.5); Sodium, Blood 137 mmol/L (136-145); Total Protein, Blood 5.9 g/dL (6.4-8.2)
--- NOTE | 2018-08-30 04:36 | NUR ---
SHIFT ASSESSMENT NO ACUTE CHANGES NOTED T/O SHIFT. PT SLEPT T/O SHIFT. PT CALM, QUIET, COOPERATIVE WITH PT CARE, IRRITABLE, FLAT AFFEWCT, CONFUSED, FORGETFUL, FOLLOWS COMMANDS, SPONT OPENS EYES, TRACKS WITH EYES, RESPOND TO VERBAL STIMULI, ABLE TO ANSWER MOST QUESTIONS, SLOW TO RESPOND. PT A&O TO SELF, FAMILY, AND PLACE. PT A&O TO SELF, FAMILY, AND PLACE. PT UNABLE TO STATE DATE, TIME, AND EVENT. SENSATION INTACT. PT DENIES N/T. PT MASCORRO. GENERALIZED WEAKNESS NOTED. PT REQUIRES REINFORCEMENT TO ASSIST WITH PT CARE AND TURNS. PT ABLE TO ASSIST WITH TURNS. PT C/O CHRONIC BACK PAIN. CONT TO ASSESS FOR PAIN/DISCOMFORT AND MEDICATED WITH TRAMADOL PER PHYSICIAN'S ORDER / UTILIZED NONPHARM METHODS. PT STATES TRAMADOL REDUCES PAIN/DISCOMFORT THAT IS TOLERABLE. LUNGS CLEAR, DIMINISHED MIDDLE AND LOWER LOBES. SHALLOW BREATHING. PT ON RA. OXY SAT REMAINED >90%. RR 12 TO 20'S. DENIES SOB AT REST. NO DYSPNEA WITH EXERTION. OCC WEAK NONPRODUCTIVE COUGH. AFEBRILE. NSR. HR 70'S TO 90'S. BP STABLE (SEE VS FS) WHILE ON LEVOPHED DRIP. LEVOPHED DRIP AT 9 MCG/MIN - CONT TO TITRATE DRIP TO EFFECT. STRONG RADIAL PULSES. FAINT TIBIAL AND PEDAL PULSES. WARM, PALE BUE'S. COOL, PALE BLE'S. HYPOACTIVE BT X4 QUADRANTS. ABD MOD DIST, SOFT, NONTENDER. PT C/O NAUSEA, NO VOMITING THAT RESOLVED AFTER ADMINISTERING ZOFRAN. NG TUBE IN PLACE - CLAMPED. PT TOLERATING PO FLUIDS AND SOFT, BITE SIZE DIET. BM: LARGE AMOUNTS OF BROWN LIQUID STOOL NOTED. RECTAL TUBE PLACED THIS SHIFT: BROWN LIQUID STOOL NOTED IN RECTAL TUBE. F/C IN PLACE: DARK YELLOW URINE NOTED. PICC SARAH. NS TKO AT 10 ML/HR. WILL CONT TO MONITOR PT AND WILL PROVIDE BEDSIDE REPORT TO ONCOMING NURSE THIS AM.
--- NOTE | 2018-08-30 04:55 | NUR ---
DR. BURRIS INFORMED DR. BURRIS OF AM LABS. DR. BURRIS ORDERED K PHOS 30 MM THIS AM. WAITING FOR MEDICATION FROM PHARMACY AT THIS TIME.
--- NOTE | 2018-08-30 08:24 | NUR ---
CARE ASSUMED CARE AND REPORT ASSUMED FROM GLADYS AMAYA. PT AWAKENED EASILY AND IS CALM, COOPERATIVE, AND APPRECIATIVE OF CARE. DENIES PAIN THIS AM. A/O X PERSON, PLACE. AT BEDSIDE. POTASSIUM PHOSPHATE REPLACEMENT INFUSING. LEVOPHED GTT TURNED DOWN TO 7 MCG/KG; WILL MONITOR BP CLOSELY. AFEBRILE. LUNG SOUNDS CLEAR AND DIMINISHED. RECTAL TUBE SECURED WITH SOME LEAKING AROUND; PT CLEANED THIS AM AND LINENS CHANGED. LENZ CATH SECURED AND PATENT. CALL LIGHT WITHIN REACH. PT SITTING UP IN BED EATING BREAKFAST SLOWLY; NO SIGNS OF CHOKING AT THIS TIME. PT ABLE TO SWALLOW PILLS WITHOUT DIFFICULTY THIS AM. NGT SECURED AND CLAMPED; WILL INQUIRE NEED FOR NGT WITH MD. WILL CONTINUE TO MONITOR.
--- NOTE | 2018-08-30 11:44 | NUR ---
REASSESSMENT PT CALM AND COOPERATIVE, A/O X 3. SHE IS SITTING UP IN BED WATCHING TV AND SIPPING ON JUICE. AT BEDSIDE. DENIES PAIN AT THIS TIME. NSR, HR 80S. BP 88/61, MAP 72 WITH LEVOPHED GTT AT 5 MCG. LENZ CATH REMAINS SECURED. RECTAL TUBE REMAINS SECURED. LACTULOSE HELD DUE TO PERSISTENT LIQUID STOOL. AFEBRILE. CIWA 0. WILL CONTINUE TO MONITOR.
[2018-08-30 17:04] LABS: BASOPHILS ABSOLUTE AUTO 0.08 K/mm3 (0.00-0.23); BASOPHILS PERCENT AUTO 1 % (0-2); EOSINOPHILS ABSOLUTE AUTO 0.11 K/mm3 (0.00-0.68); EOSINOPHILS PERCENT AUTO 1 % (0-6); Hematocrit 28.6 % (33.0-51.0); Hemoglobin 10.2 g/dL (11.5-16.0); IMMATURE GRAN PERCENT AUTO 3 % (0-1); LYMPHOCYTES PERCENT AUTO 15 % (21-46); MONOCYTES ABSOLUTE AUTO 1.72 K/mm3 (0.16-1.47); MONOCYTES PERCENT AUTO 13 % (4-13); Mean Corpuscular HGB 35.2 pg (26.0-34.0); Mean Corpuscular HGB Conc 35.7 g/dL (31.5-36.5); Mean Corpuscular Volume 99 fL (80-100); Mean Platelet Volume 12.1 fL (9.1-12.4); NEUTROPHILS ABSOLUTE AUTO 8.71 K/mm3 (1.96-9.15); NEUTROPHILS PERCENT AUTO 67 % (41-73); NRBC ABSOLUTE 0.07 K/mm3 (0.00-0.02); NRBC Auto 0.5 /100 WBC (0.0-0.2); RDW Coefficient Variation 16.3 % (11.7-14.2); RDW Standard Deviation 56.5 fL (35.1-46.3); White Blood Cell Count 12.92 K/mm3 (4.00-11.30)
[2018-08-30 17:18] LABS: Anion Gap 7 mmol/L (6-16); Blood Urea Nitrogen 1 mg/dL (8-24); Bun/Creatinine Ratio 3.3 (12.0-20.0); CO2, Blood 34 mmol/L (21-32); Calcium, Blood 7.3 mg/dL (8.5-10.1); Chloride, Blood 94 mmol/L (98-108); Glomerular Filtration Rate >60 (60-); Glucose, Blood 130 mg/dL (70-99); Magnesium, Blood 2.2 mg/dL (1.6-2.4); Phosphorus, Blood 2.1 mg/dL (2.5-4.9); Platelet Count 41 K/mm3 (150-400); Potassium, Blood 3.1 mmol/L (3.5-5.5); Sodium, Blood 135 mmol/L (136-145)
--- NOTE | 2018-08-30 18:39 | NUR ---
SHIFT SUMMARY PT REMAINED ON LEVOPHED GTT ENTIRE SHIFT; CURRENTLY AT 5 MCG. NSR ENTIRE SHIFT, HR 70-80S. PT CONTINUED TO HAVE DIARRHEA ENTIRE SHIFT. UP TO CHAIR FOR FEW HOURS AND RECEIVED BEDBATH AND LINEN CHANGE. A/O ENTIRE SHIFT. BEDSIDE DURING SHIFT. NO SIGNS OF ASPIRATION WHEN EATING. PO POTASSIUM GIVEN THIS EVENING AND POTASSIUM PHOSPHATE INFUSION STARTED FOR REPLACEMENT. AFEBRILE ENTIRE SHIFT. WILL GIVE BEDSIDE, HANDOFF REPORT TO NOC RN.
--- NOTE | 2018-08-31 | NUR ---
PT MORE ALERT THAN BEGINNING OF SHIFT. ASKED FOR A "WHOLE" SANDWICH & PROVIDED, ALONG W CRANBERRY JUICE. LEVOPHED HAS BEEN TITRATED UP TO 7 MCG/MIN. WATCHING TV W WHO IS AT BEDSIDE. TURNS SELF SIDE TO SIDE IN BED & USING BED CONTROL TO ADJUST BED. CALL LIGHT IN REACH.
[2018-08-31 04:36] LABS: BASOPHILS ABSOLUTE AUTO 0.08 K/mm3 (0.00-0.23); BASOPHILS PERCENT AUTO 1 % (0-2); EOSINOPHILS PERCENT AUTO 1 % (0-6); Hematocrit 29.4 % (33.0-51.0); Hemoglobin 10.5 g/dL (11.5-16.0); IMMATURE GRAN ABSOLUTE AUTO 0.33 K/mm3 (0.00-0.10); IMMATURE GRAN PERCENT AUTO 3 % (0-1); LYMPHOCYTES ABSOLUTE AUTO 1.56 K/mm3 (0.84-5.20); LYMPHOCYTES PERCENT AUTO 13 % (21-46); MONOCYTES PERCENT AUTO 13 % (4-13); Mean Corpuscular HGB 35.6 pg (26.0-34.0); Mean Corpuscular HGB Conc 35.7 g/dL (31.5-36.5); Mean Corpuscular Volume 100 fL (80-100); NEUTROPHILS ABSOLUTE AUTO 8.86 K/mm3 (1.96-9.15); NEUTROPHILS PERCENT AUTO 71 % (41-73); NRBC ABSOLUTE 0.02 K/mm3 (0.00-0.02); NRBC Auto 0.2 /100 WBC (0.0-0.2); RDW Coefficient Variation 16.6 % (11.7-14.2); RDW Standard Deviation 58.1 fL (35.1-46.3); Red Blood Cell Count 2.95 M/mm3 (3.80-5.20); White Blood Cell Count 12.53 K/mm3 (4.00-11.30)
[2018-08-31 04:52] LABS: Mean Platelet Volume 13.1 fL (9.1-12.4); Platelet Count 45 K/mm3 (150-400)
[2018-08-31 04:56] LABS: Alanine Aminotransfer (ALT/SGP 36 U/L (12-78); Albumin, Blood 1.8 g/dL (3.4-5.0); Albumin/Globulin Ratio 0.4 (0.8-1.8); Alk Phos 200 U/L (50-136); Anion Gap 8 mmol/L (6-16); Aspartate Aminotrans (AST/SGOT 101 U/L (12-37); Bilirubin, Total 5.5 mg/dL (0.1-1.0); Blood Urea Nitrogen 1 mg/dL (8-24); Bun/Creatinine Ratio 3.3 (12.0-20.0); CO2, Blood 29 mmol/L (21-32); Calcium, Blood 7.4 mg/dL (8.5-10.1); Chloride, Blood 100 mmol/L (98-108); Glomerular Filtration Rate >60 (60-); Glucose, Blood 204 mg/dL (70-99); Phosphorus, Blood 1.7 mg/dL (2.5-4.9); Potassium, Blood 4.1 mmol/L (3.5-5.5); Sodium, Blood 137 mmol/L (136-145); Total Protein, Blood 5.8 g/dL (6.4-8.2)
--- NOTE | 2018-08-31 05:30 | NUR ---
PT CONT AWAKE, ALERT & DENIES ANY PAIN. ASKS FOR "COLORED WATER", CRANBERRY JUICE & SAYS SHE IS REALLY HUNGRY & LOOKING FORWARD TO BREAKFAST. CONT W LEVOPHED @ 7MCG/MIN, AND SBP 90-100. LARGE AMT OF URINE OUT TONOC, CONT CONCENTRATED. LOW PHOS CALLED TO DR BURRIS THIS AM W ORDERS REC'D. CONT ON ROOM AIR, AND WATCHING TV, IN RECLINER AT BEDSIDE.
--- NOTE | 2018-08-31 07:15 | NUR ---
START OF SHIFT NOTE: PATIENT IS AWAKE, ALERT AND ORIENTED, LS CLEAR BUT DIMINISHED, NSR, SLIGHTLY ELEVATED TEMP AT 99.3, BOWEL SOUNDS HYPERACTIVE IN ALL FOUR QUADRANTS, RECTAL TUBE IN PLACE, DRAINING LIGHT BROWN LIQUID STOOL, LENZ CATHETER IN PLACE, DRAINING LIGHT YELLOW URINE, PATIENT IS ASKING FOR CRANBERRY JUICE WITH ICE AND FOR BREAKFAST, EATING A BAG OF FRITOS AT THIS TIME, NEUTRA PHOS POWDER GIVEN, AT BEDSIDE, CALL LIGHT IN REACH, WILL CONTINUE TO MONITOR.
--- NOTE | 2018-08-31 10:28 | NUR ---
DR. BURRIS IN TO SEE PATIENT, NEW ORDERS RECEIVED.
--- NOTE | 2018-08-31 11:19 | NUR ---
PATIENT WAS UP IN CHAIR FOR GREATER THAN TWO HOURS, TOLERATED VERY WELL, BROUGHT PATIENT SOUP FROM [place], PATIENT STATED "I AM SO HUNGRY", WAS ADVISED TO CHECK WITH NURSE ABOUT DIET ORDER FOR PATIENT BEFORE BRINGING MORE FOOD, PATIENT ATE SOUP WITH GOOD APPETITE, RETURNED TO BED FROM CHAIR WITH TWO ASSIST, NEEDS COACHING, NEW GOWN PROVIDED, PATIENT RESTING COMFORTABLY, AT BEDSIDE, CALL LIGHT IN REACH, WILL CONTINUE TO MONITOR.
--- NOTE | 2018-08-31 15:01 | NUR ---
PATIENT SLEEPING, AT BEDSIDE, SLEEPING IN RECLINER, CALL LIGHT IN REACH, WILL CONTINUE TO MONITOR.
[2018-08-31 16:28] LABS: Magnesium, Blood 2.1 mg/dL (1.6-2.4); Phosphorus, Blood 2.1 mg/dL (2.5-4.9)
--- NOTE | 2018-08-31 17:55 | NUR ---
SHIFT SUMMARY NOTE: PATIENT IS AWAKE, ALERT AND ORIENTED X 3, ON RA WITH SATS IN MID TO UPPER 90'S, LUNG SOUNDS DIMINISHED AND COARSE THROUGHOUT, NSR WITH HR IN 80'S - 90'S, SBP'S IN UPPER 90'S TO LOW 110'S WITH LEVOPHED AT 3, PATIENT RECEIVED A ONE TIME 1L NS BOLUS PER DR. BURRIS TO HELP WITH VOLUME, NS AT TKO AT THIS TIME, PATIENT HAS PICC IN SARAH THAT FLUSHES WELL AND HAS GOOD BLOOD RETURN, BOWEL TONES ARE HYPERACTIVE IN ALL FOUR QUADRANTS, PATIENT CONTINUES TO HAVE DIARRHEA AND WATERLY LIGHT BROWN STOOLS, RECTAL TUBE IN PLACE, HOLD LACTULOSE PER DR. BURRIS UNTIL STOOLS ARE MORE FORMED, LENZ CATHETER IN PLACE, WITH CLEAR YELLOW URINE OUTPUT OF 2350 CC'S ON THIS SHIFT, PATIENT IS DRINKING WELL, AND IS ON A SOFT, BITE SIZE DIET, EATS WITH GOOD APPETITE, UP TO CHAIR TODAY WITH TWO ASSIST, NEEDS COACHING, PT IS ORDERED, TOLERATED WELL, TOOK MANY SHORT NAPS THROUGHOUT DAY, AT BEDSIDE, CALL LIGHT IN REACH, WILL CONTINUE TO MONITOR AND GIVE REPORT TO ONCOMING BILINGUAL SECRETARY.
--- NOTE | 2018-08-31 19:15 | NUR ---
ASSUMED CARE PT SITTING UP IN BED, WATCHING TV WITH KYLEIGH IN ROOM. PT CURRENTLY WITHOUT COMPLAINT BUT IS REPORTING SHE WILL BE READY FOR A SNACK AT 2100. LEVOPHED REMAINS ON AT 3MCG/MIN AND NS TKO VIA SARAH PICC. RECTAL TUBE IN PLACE WITH 250ML OUT FOR DAY SHIFT AND PLAN TO HOLD LACTULOSE TONIGHT. REVIEWED PLAN FOR SHIFT WITH PT WITH EMPHASIS ON SLEEP AND ALERTING STAFF TO NEEDS. VSS, ECG SHOWS SR AND O2 SATS 95% ON RA.
--- NOTE | 2018-09-01 05:38 | NUR ---
SHIFT SUMMARY NO ACUTE EVENTS OVERNIGHT. PT DENIES COMPLAINTS OTHER THAN HUNGER AND WANTS TO KNOW WHAT TIME BREAKFAST ARRIVES. NS TKO AND LEVOPHED REMAINS ON AT 3MCG/MIN, DOWNWARD TITRATION UNSUCCESSFUL WITH MAP'S <60. ECG SHOWS SR, O2 SATS 92-95% ON RA. RECTAL TUBE REMAINS IN PLACE WITH LIQUID YELLOW STOOL, UOP >2L THIS SHIFT. PT'S KYLEIGH HAS SLEPT IN ROOM.
--- NOTE | 2018-09-01 07:38 | NUR ---
START OF SHIFT NOTE: PATIENT SLEEPING, BUT EASILY AROUSEABLE, ASKING FOR BREAKFAST TRAY, LUNG SOUNDS CLEAR, SLIGHTLY DIMINISHED IN BASES, NSR, RA SATING AT 97%, BOWEL TONES PRESENT IN ALL FOUR QUADRANTS, RECTAL TUBE WITH YELLOW/LIGHT BROWN WATERY STOOLS, LENZ CATHETER IN PLACE DRAINING LARGE AMOUNTS OF CLEAR YELLOW URINE, PICC IN SARAH FLUSHES WELL AND HAS GOOD BLOOD RETURN, LEVOPHED INFUSING AT 3 MCG, NS AT TKO, SLEEPING IN ROOM, CALL LIGHT IN REACH, WILL CONTINUE TO MONITOR.
[2018-09-01 10:09] LABS: HEPARIN INDUCED PLATELET AB 0.251 OD (0.000-0.400)
--- NOTE | 2018-09-01 10:28 | NUR ---
PT IN TO WORK WITH PATIENT, UP IN CHAIR WITH WALKER, PATIENT REFUSED SHOWER, ASKED FOR A BEDBATH, STATED "I DON'T WANT TO TAKE A SHOWER IN HERE WITH ALL THAT STUFF ON ME", DENIES PAIN, REPORTS NO SOB, UP IN CHAIR, CALL LIGHT IN REACH, WILL CONTINUE TO MONITOR.
--- NOTE | 2018-09-01 11:04 | NUR ---
DR. AMES IN TO SEE PATIENT, PATIENT UP IN CHAIR, NEW ORDERS RECEIVED, ALSO [facility] RN, IN TO SEE PATIENT, CALL LIGHT IN REACH, WILL CONTINUE TO MONITOR.
[2018-09-01 11:33] LABS: Source, Urine Catheter
[2018-09-01 11:42] LABS: Blood, Urine Neg (Neg); Glucose Qualitative, Urine Neg (Neg); Ketones, Urine Neg (Neg); Leukocyte Esterase, Urine 2+ (Neg); Nitrite, Urine Neg (Neg); Protein, Urine Neg (Neg); Urobilinogen, Urine 1+ (Normal)
[2018-09-01 11:53] LABS: Appearance, Urine Clear (Clear); Bilirubin, Urine 2+ (Neg); Color, Urine Yellow (P-Yellow)
[2018-09-01 11:54] LABS: Red Blood Cells, Urine 0-2 /hpf (0-2); Transitional Epithelial Cells Few /hpf (0-Rare)
[2018-09-01 11:55] LABS: Bacteria Few /hpf; Squamous Epithelial Cells Few /hpf (Few)
[2018-09-01 11:59] LABS: Magnesium, Blood 2.2 mg/dL (1.6-2.4); Phosphorus, Blood 1.2 mg/dL (2.5-4.9)
--- NOTE | 2018-09-01 14:35 | NUR ---
LEVOPHED DRIP WAS TURNED OFF, DR. AMES NOTIFIED, ALSO RECTAL TUBE WAS REMOVED PER DR. AMES, AWAITING RESULTS FOR URINE OSMOLALITY.
--- NOTE | 2018-09-01 14:49 | NUR ---
DR. OGLESBY IN TO SEE PATIENT, NO NEW ORDERS RECEIVED.
--- NOTE | 2018-09-01 16:28 | NUR ---
DR. AMES NOTIFIED ABOUT URINE OSMOLALITY OF 247, WILL WRITE NEW ORDERS.
--- NOTE | 2018-09-01 17:00 | NUR ---
PATIENT'S BLOOD PRESSURE DROPS WHEN SHE IS LYING FLAT SLEEPING, SOON PATIENT WAKES UP AND MOVES AROUND HER BLOOD PRESSURE INCREASES INTO 90'S WITH A MAP >60, CALL LIGHT IN REACH, WILL CONTINUE TO MONITOR.
--- NOTE | 2018-09-01 17:50 | NUR ---
SHIFT SUMMARY: PATIENT CONTINUES TO BE ALERT AND ORIENTED, SLEEPS MOSTLY, C/O BEING TIRED, LUNG SOUNDS CLEAR, OCCASIONAL COUGH NONPRODUCTIVE, NSR, LEVOPHED TURNED OFF, MIDODRINE INITIATED PER DR. AMES, PATIENT CONTINUES TO HAVE SOME LOWER BLOOD PRESSURES WHEN SLEEPING, BOWEL SOUNDS PRESENT IN ALL FOUR QUADRANTS, RECTAL TUBE REMOVED D/T FORMED STOOL, PATIENT UP IN CHAIR AND WORKING WITH PT, TOLERATED WELL, PICC IN SARAH FLUSHES WELL AND HAS GOOD BLOOD RETURN, FOR DETAILS SEE SHIFT ASSESSMENT DOCUMENTATION AND NURSES NOTES, AT BEDSIDE, CALL LIGHT IN REACH, WILL CONTINUE TO MONITOR AND GIVE REPORT TO ONCOMING BRAKE LINING MAKER.
--- NOTE | 2018-09-01 20:50 | NUR ---
ASSUMED CARE OF PT PT ALERT AND ORIENTED. PT ABLE TO STATE WHERE SHE WAS, WHAT YEAR IT WAS AND WHO THE PRESIDENT IS. LEVOPHED RUNNING AT 1 MCG/MIN, NS TKO. LENZ TEMP PATENT AND DRAINING. CONTINUES TO BE AT BEDSIDE. SEE FULL SHIFT ASSESSMENT.
--- NOTE | 2018-09-02 00:09 | NUR ---
MIDSHIFT ASSESSMENT PT RESTING COMFORTABLY. PLACED LEVOPHED ON STANDBY FOR APPROX 1 HR AND PT'S MAP WAS AT 58. LEVO 1 MCG/MIN RESTARTED TO MAINTAIN MAP ABOVE 60
[2018-09-02 04:16] LABS: BASOPHILS ABSOLUTE AUTO 0.07 K/mm3 (0.00-0.23); BASOPHILS PERCENT AUTO 1 % (0-2); EOSINOPHILS ABSOLUTE AUTO 0.09 K/mm3 (0.00-0.68); EOSINOPHILS PERCENT AUTO 1 % (0-6); Hemoglobin 9.4 g/dL (11.5-16.0); IMMATURE GRAN ABSOLUTE AUTO 0.35 K/mm3 (0.00-0.10); IMMATURE GRAN PERCENT AUTO 4 % (0-1); LYMPHOCYTES ABSOLUTE AUTO 1.19 K/mm3 (0.84-5.20); LYMPHOCYTES PERCENT AUTO 12 % (21-46); MONOCYTES ABSOLUTE AUTO 1.63 K/mm3 (0.16-1.47); MONOCYTES PERCENT AUTO 16 % (4-13); Mean Corpuscular HGB 35.5 pg (26.0-34.0); Mean Corpuscular HGB Conc 34.8 g/dL (31.5-36.5); Mean Corpuscular Volume 102 fL (80-100); NEUTROPHILS ABSOLUTE AUTO 6.66 K/mm3 (1.96-9.15); NEUTROPHILS PERCENT AUTO 67 % (41-73); Platelet Count 57 K/mm3 (150-400); RDW Standard Deviation 64.1 fL (35.1-46.3); Red Blood Cell Count 2.65 M/mm3 (3.80-5.20); White Blood Cell Count 9.99 K/mm3 (4.00-11.30)
[2018-09-02 04:23] LABS: Mean Platelet Volume 13.4 fL (9.1-12.4)
[2018-09-02 04:39] LABS: Alanine Aminotransfer (ALT/SGP 34 U/L (12-78); Albumin, Blood 1.5 g/dL (3.4-5.0); Albumin/Globulin Ratio 0.4 (0.8-1.8); Alk Phos 174 U/L (50-136); Anion Gap 7 mmol/L (6-16); Aspartate Aminotrans (AST/SGOT 71 U/L (12-37); Bilirubin, Direct 4.9 mg/dL (0.0-0.3); Bilirubin, Indirect 0.7 mg/dL (0.1-0.7); Bilirubin, Total 5.6 mg/dL (0.1-1.0); Blood Urea Nitrogen 2 mg/dL (8-24); Bun/Creatinine Ratio 7.9 (12.0-20.0); CO2, Blood 25 mmol/L (21-32); Calcium, Blood 7.5 mg/dL (8.5-10.1); Chloride, Blood 102 mmol/L (98-108); Creatinine, Blood 0.25 mg/dL (0.40-1.00); Globulin, Blood 3.6 g/dL (2.2-4.0); Glomerular Filtration Rate >60 (60-); Glucose, Blood 183 mg/dL (70-99); Magnesium, Blood 1.9 mg/dL (1.6-2.4); Phosphorus, Blood 1.4 mg/dL (2.5-4.9); Potassium, Blood 3.5 mmol/L (3.5-5.5); Sodium, Blood 134 mmol/L (136-145); Total Protein, Blood 5.1 g/dL (6.4-8.2)
--- NOTE | 2018-09-02 06:07 | NUR ---
SHIFT SUMMARY NO ACUTE CHANGES OVERNIGHT. PT REMAINS ON LEVOPHED 1 MCG/MIN AND NS TKO. LEVOPHED WAS PLACED ON STANDBY FOR A SHORT PERIOD OF TIME BUT PT'S MAP DECREASED TO LOW 50'S. PT HAS A GOOD APPETITE AND IS TOLERATING JUICE AND SOFT FOODS WELL. LENZ PATENT AND DRAINING. 500 ML OF DARK TEA COLORED URINE THIS SHIFT. PT'S AT BEDSIDE. WILL REPORT TO DAYSHIFT NURSE.
--- NOTE | 2018-09-02 08:00 | NUR ---
ASSUMED CARE ASSUMED CARE OF PT AT 0700. REPORT RECEIVED FROM JOSE LUIS ROBLES. PT LYING IN BED, AWAKE, ALERT AND ORIENTED. PT IN NO APPARENT DISTRESS, DENIES SHORTNESS OF BREATH, DENIES PAIN, DENIES HEADACHE OR NAUSEA. VITAL SIGNS STABLE - MONITOR SHOWS SINUS RHYTHM WITH HR 80'S, MAP >65 WITH LEVOPHED 1MCG/MIN - WILL TITRATE ABLE. PT HAS PICC TO SARAH. TEMP LENZ CATH IN PLACE DRAINING DARK KEVIN URINE TO GRAVITY. PT HAS CLEAN DRY ATTENDS IN PLACE. PT'S SPOUSE AT BEDSIDE. PT USING CALL LIGHT APPROPRIATELY FOR NEEDS. WILL CONTINUE TO MONITOR CLOSELY.
--- NOTE | 2018-09-02 11:18 | NUR ---
DR. HUI AMES ROUNDED ON PT. PLAN TO INCREASE MIDODRINE DOSE R/T ONGOING BORDERLINE LOW BP'S WHEN OFF OF LEVOPHED. ALSO PLAN TO REPLACE PHOS. DISCUSSED PLAN WITH PT AND PT'S SPOUSE AT BEDSIDE.
--- NOTE | 2018-09-02 18:41 | NUR ---
SHIFT SUMMARY LEVOPHED TURNED OFF AT START OF SHIFT AND MIDODRINE DOSE INCREASED THIS AM. BP HAS MAINTAINED WITH MAP >65 SINCE. LENZ CATHETER WAS ALSO DC'D - PT UP TO TOILET FOR VOIDS WITH STANDBY ASSIST. PT WAS MADE MEDICAL STATUS THIS AFTERNOON. PT HAS BEEN PLEASANT AND COOPERATIVE WITH CARE T/O SHIFT, USING CALL LIGHT APPROPRIATELY FOR NEEDS. AT BEDSIDE T/O SHIFT ASSISTING WITH CARE. WILL CONTINUE TO MONITOR PT AND GIVE HANDOFF REPORT TO ONCOMING RN WHEN AVAILABLE.
--- NOTE | 2018-09-02 20:00 | NUR ---
ASSUMED CARE OF PT. REPORT RECEIVED AT BEDSIDE. PT PRESENTS IN BED. ALERT AND ORIENTED. ENGAGES IN CONVERSATION. PT'S S.O. AT BEDSIDE. PT HAS MILDLY SLOW RESPONSES TO QUESTIONS. WILL REVIEW CHART AND PLAN OF CARE FOR THIS PT.
--- NOTE | 2018-09-03 | NUR ---
PT RESTING IN BED. IS GOOD ABOUT CALLING FOR ASSIST WHEN SHE NEEDS TO GET UP TO BATHROOM. VOIDS Q.S. NO COMPLAINTS VOICED. S.O. ROOMS IN. PT MAINTAINING ON ROOM AIR WITH SATURATIONS > 90 PERCENT DURING SPOT CHECKS. PT REMAINS ALERT AND ORIENTED. WILL CONTINUE TO MONITOR PT.
[2018-09-03 06:18] LABS: BASOPHILS PERCENT AUTO 1 % (0-2); EOSINOPHILS ABSOLUTE AUTO 0.08 K/mm3 (0.00-0.68); EOSINOPHILS PERCENT AUTO 1 % (0-6); Hemoglobin 9.3 g/dL (11.5-16.0); IMMATURE GRAN ABSOLUTE AUTO 0.43 K/mm3 (0.00-0.10); IMMATURE GRAN PERCENT AUTO 4 % (0-1); LYMPHOCYTES ABSOLUTE AUTO 1.64 K/mm3 (0.84-5.20); LYMPHOCYTES PERCENT AUTO 14 % (21-46); MONOCYTES ABSOLUTE AUTO 1.71 K/mm3 (0.16-1.47); MONOCYTES PERCENT AUTO 15 % (4-13); Mean Corpuscular HGB 34.6 pg (26.0-34.0); Mean Corpuscular HGB Conc 34.4 g/dL (31.5-36.5); Mean Corpuscular Volume 100 fL (80-100); NEUTROPHILS ABSOLUTE AUTO 7.66 K/mm3 (1.96-9.15); NEUTROPHILS PERCENT AUTO 66 % (41-73); Platelet Count 71 K/mm3 (150-400); RDW Coefficient Variation 18.1 % (11.7-14.2); RDW Standard Deviation 62.9 fL (35.1-46.3); Red Blood Cell Count 2.69 M/mm3 (3.80-5.20); White Blood Cell Count 11.62 K/mm3 (4.00-11.30)
[2018-09-03 06:24] LABS: Mean Platelet Volume 13.9 fL (9.1-12.4)
--- NOTE | 2018-09-03 06:24 | NUR ---
PT HAS BEEN ABLE TO REST THROUGHOUT THE NIGHT. PT REMAINS WITH NEEDING SOMEONE TO BE STANDBY WHEN SHE IS UP OUT OF BED. IS GOOD ABOUT CALLING. PT REMAINS ALERT AND ORIENTED THROUGHOUT THE NIGHT. NO S/S ETOH W/D'S. IS ABLE TO MAINTAIN CONVERSATIONS. WILL CONTINUE TO MONITOR PT, AND WILL REPORT OFF TO ONCOMING RN.
[2018-09-03 06:36] LABS: Anion Gap 7 mmol/L (6-16); Blood Urea Nitrogen 2 mg/dL (8-24); Bun/Creatinine Ratio 6.3 (12.0-20.0); CO2, Blood 25 mmol/L (21-32); Calcium, Blood 7.6 mg/dL (8.5-10.1); Chloride, Blood 105 mmol/L (98-108); Creatinine, Blood 0.32 mg/dL (0.40-1.00); Glomerular Filtration Rate >60 (60-); Glucose, Blood 126 mg/dL (70-99); Phosphorus, Blood 1.8 mg/dL (2.5-4.9); Potassium, Blood 3.5 mmol/L (3.5-5.5); Sodium, Blood 137 mmol/L (136-145)
--- NOTE | 2018-09-03 07:45 | NUR ---
ASSUMED CARE NOTE REPORT RECEIVED FROM JOSE LUIS PRATT. BEDSIDE ROUNDING DONE. PT SITTING UP IN BED REQUESTING TO USE TOILET. PT ASSISTED TO SIDE OF BED TO DANGLE, THEN STOOD AND AMBULATED TO TOILET WITHOUT C/O DIZZINESS/LIGHTHEADEDNESS. PT REPORTED FEELING WEAK, BUT OTHERWISE WITHOUT C/O. PT HAD SMALL LOOSE BM AND UNMEASURED VOID. PT RETURNED TO BED AND REPOSITIONED SELF TO COMFORT. PT ALERT AND ORIENTED TO ALL BUT MONTH AND DAY. PT DENIES ANY PAIN OR DISCOMFORT AT THIS TIME. BED IN LOWEST POSITION, UPPER SIDE RAILS RAISED. CALL LIGHT IN REACH. PT'S AT BEDSIDE. WILL CONT TO MONITOR PT.
--- NOTE | 2018-09-03 15:48 | NUR ---
C/O INABILITY TO VOID PT CALLED C/O INABILITY TO VOID. PT REPORTS DISCOMFORT, DESCRIBES IT "PRESSURE". PT STATES THAT SHE HAS TRIED TO SIT ON THE TOILET AND VOID "3 TIMES" WITHOUT RESULT. BLADDER SCAN DONE, 241ML SHOWN. CALL TO DR TADEO NOTIFYING HER OF CHANGE PT HAD INCONTINENT SPELL EARLIER IN THE AFTERNOON SATURATING HER ATTENDS AND THE BED LINENS. ORDER RECEIVED FOR PYRIDIUM TID AND SEE IF RELIEF IS ACHIEVED BEFORE ATTEMPTING TO CATHETERIZE PT. WILL CONT TO MONITOR PT.
--- NOTE | 2018-09-03 16:50 | NUR ---
INCONTINENT EPIDSODE PT GIVEN PYRIDIUM PER ORDERS AT 1555. PT CALLED AT 1640 REPORTING INCONTINENCE. PT WITH SATURATED ATTENDS. PT CLEANED UP AND NEW ATTENDS PUT ON. PT REPORTED RELIEF FROM BLADDER DISCOMFORT. WILL CONT TO MONITOR PT.
--- NOTE | 2018-09-03 17:53 | NUR ---
SHIFT SUMMARY PT RESTING IN BED, REPOSITIONING SELF. PT OOB TO CHAIR X1 FOR BB THEN IMMEDIATELY AFTER REQUESTED TO RETURN TO BED. PT UP IN ROOM INDEPENDENTLY WITHOUT C/O DIZZINESS/LIGHTHEADEDNESS. PT ALERT AND ORIENTED, COOPERATIVE WITH CARE. VSS THROUGHOUT SHIFT, SEE FLOWSHEET. PT CONTINUES TO DENY ANY PAIN, ONLY DISCOMFORT REPORTED WAS TO BLADDER BUT RESOLVED AFTER PYRIDIUM AND PT WAS ABLE TO VOID. POSSIBLE D/C HOME TOMORROW PER DR TADEO. DR AMES SAW PT TODAY AND SIGNED OFF. BED IN LOWEST POSITION, UPPER SIDE RAILS RAISED. CALL LIGHT IN REACH. AT BEDSIDE. WILL CONT TO MONITOR PT THROUGH TO CHANGE OF SHIFT.
--- NOTE | 2018-09-03 19:11 | NUR ---
REPORT OFF REPORT GIVEN TO JOSE LUIS PRATT. SANTA TO ASSUME CARE OF PT AT THIS TIME.
--- NOTE | 2018-09-03 20:00 | NUR ---
ASSUMED CARE OF PT AT 1900. REPORT RECEIVED. PT PRESENTS IN BED. ALERT AND ORIENTED. PLEASANT AND COOPERATIVE WITH CARE AND ASSESSMENT. DENIES COMPLAINTS AT THIS TIME. DENIES COMPLAINS OF BLADDER DISCOMFORT. WILL REVIEW CHART AND PLAN OF CARE FOR THIS PT.
--- NOTE | 2018-09-03 23:48 | NUR ---
PT CALLS AND COMPLAINS THAT SHE HAS BEEN UP TO VOID X 4 WITHOUT BEING ABLE TO VOID. BROUGHT BLADDER SCANNER TO ROOM. UPON SCANNING, REVEALS 21 ML PT THEN STATES SHE HAD JUST BEEN INCONTINENT. HAD MEDICATED PT JUST EARLIER WITH PYRIDIUM. BATH TESTER ASSISTS PT WITH CLEAN UP AND ATTENDS CHANGE. REPORTED PT HAD QUITE A BIT OF URINE. PT NOW RESTING IN BED WITHOUT COMPLAINTS. PT'S TO ROOM IN [facility]. HAS BEEN ASSISTING PT TO BATHROOM. STATES SHE HAS HAD SEVERAL BM'S THIS EVENING. WILL CONTINUE TO MONITOR PT. CALL LIGHT WITHIN REACH.
--- NOTE | 2018-09-04 03:27 | NUR ---
CHARTING REFLECTS DAYLIGHT SAVINGS TIME. PT RESTING COMFORTABLY IN BED AT THIS TIME. IS AWAKE AND VISITING WITH HER . NO COMPLAINTS VOICED BY PT. NO NAUSEA. VSS. WILL CONTINUE TO MONITOR PT.
--- NOTE | 2018-09-04 06:50 | NUR ---
PT HAS BEEN ABLE TO REST SOME THIS NIGHT. AMBULATES TO TOILET WITH STANDBY ASSIST THIS AM AND VOIDS 450 ML PYRIDIUM STAINED URINE. PT AMBULATES BACK TO BED AND IS CURRENTLY RESTING. WILL REVIEW CHART AND PLAN OF CARE FOR THIS PT.
[2018-09-04 06:51] LABS: Anion Gap 9 mmol/L (6-16); Blood Urea Nitrogen 3 mg/dL (8-24); Bun/Creatinine Ratio 12.7 (12.0-20.0); CO2, Blood 25 mmol/L (21-32); Calcium, Blood 7.3 mg/dL (8.5-10.1); Chloride, Blood 104 mmol/L (98-108); Creatinine, Blood 0.24 mg/dL (0.40-1.00); Glomerular Filtration Rate >60 (60-); Glucose, Blood 113 mg/dL (70-99); Magnesium, Blood 1.7 mg/dL (1.6-2.4); Phosphorus, Blood 1.6 mg/dL (2.5-4.9); Potassium, Blood 3.2 mmol/L (3.5-5.5); Sodium, Blood 138 mmol/L (136-145)
--- NOTE | 2018-09-04 07:30 | NUR ---
RECEIVED REPORT FROM JOSE LUIS HAINES, AND ASSUMED CARE OF PT.
[2018-09-04] MEDS ORDERED: FOLI1 PO (10:06)
[2018-09-04] MEDS ORDERED: FAMO20 PO (10:06)
[2018-09-04] MEDS ORDERED: MELA3 PO (10:07)
[2018-09-04] MEDS ORDERED: LACT10SY PO (10:07)
[2018-09-04] MEDS ORDERED: MIDO5 PO (10:08)
[2018-09-04] MEDS ORDERED: K-Phos Origina500 MG PO (10:09)
[2018-09-04] MEDS ORDERED: Pyridium200 MG PO (10:09)
[2018-09-04] MEDS ORDERED: VITAMIN B-1100 MG PO (10:10)
--- NOTE | 2018-09-04 10:49 | NUR ---
DISCHARGE NOTE PROVIDED PT AND WITH DISCHARGE INSTRUCTIONS. ANSWERED ALL QUESTIONS. FAXED PRESCRIPTIONS TO [facility] IN [place]. DISCONTINUED RIGHT UPPER ARM PICC LINE INTACT, TOLERATED WELL, HELD PRESSURE 5 MINUTES, NO BLEEDING AT SITE, INSTRUCTED TO LEAVE DRESSING IN PLACE FOR 2 HOURS. PATIENT WAS ESCORTED OUT VIA WHEELCHAIR BY BOLIVAR ECKERT.
== END 2018-09-04 10:48 | disposition home or self-care (01) | DRG 441 ==
LOC: ER 14:05 → ICUE 15:46 → ICUW 15:46 → ICUE 16:50
PROVIDERS: Emergency Medicine; Hospitalist; Internal Medicine; Internal Medicine Critical Care Medicine; Internal Medicine Pulmonary Disease; ADMIT Internal Medicine
PROC: 3E043XZ Introduction of Vasopressor into Central Vein, Percutaneous Approach (ICD-10-PCS; principal; 2018-08-28)
PROC: 02H633Z Insertion of Infusion Device into Right Atrium, Percutaneous Approach (ICD-10-PCS; 2018-08-28)
DX: K72.00 Acute and subacute hepatic failure without coma (principal); J96.01 Acute respiratory failure with hypoxia; J69.0 Pneumonitis due to inhalation of food and vomit; E43 Unspecified severe protein-calorie malnutrition; E72.20 Disorder of urea cycle metabolism, unspecified; N39.0 Urinary tract infection, site not specified; K70.10 Alcoholic hepatitis without ascites; F17.210 Nicotine dependence, cigarettes, uncomplicated; E87.6 Hypokalemia; Y90.0 Blood alcohol level of less than 20 mg/100 ml; I95.9 Hypotension, unspecified; E80.6 Other disorders of bilirubin metabolism; H10.9 Unspecified conjunctivitis; E83.39 Other disorders of phosphorus metabolism; T73.0XXA Starvation, initial encounter; Y92.9 Unspecified place or not applicable; D69.6 Thrombocytopenia, unspecified
CPT/HCPCS: 36415; 36569; 36600; 51702; 70450; 71045; 74160; 80048; 80053; 80069; 80076; 81001; 82010; 82140; 82550; 82803; 82947; 83605; 83735; 83935; 84100; 84132; 84484; 85014; 85018; 85025; 85610; 86022; 87040; 87086; 92610; 93005; 93010; 93306; 96374; 97110; 97116; 97162; 97530; 99285-25; C1751; C9113; G0480; J1644; J2405; J2543; J2597; J3475; J3480; J7030; J7040; J7050; J7060; J7120; P9612; Q9967

== ENCOUNTER 2018-09-11 01:04 | Inpatient (IN) | payer OTHER ==
[~2018-09-11] VITALS: Ht 167.6 cm; Wt 63.1 kg
[~2018-09-11 01:04] MED LIST changes: +FAMO20 PO; +K-Phos Origina500 MG PO; +LACT10SY PO; +MELA3 PO; +MIDO5 PO; +Pyridium200 MG PO; +VITAMIN B-1100 MG PO
[2018-09-11 01:38] LABS: BASOPHILS ABSOLUTE AUTO 0.08 K/mm3 (0.00-0.23); BASOPHILS PERCENT AUTO 1 % (0-2); EOSINOPHILS ABSOLUTE AUTO 0.24 K/mm3 (0.00-0.68); EOSINOPHILS PERCENT AUTO 2 % (0-6); Hematocrit 28.1 % (33.0-51.0); Hemoglobin 9.6 g/dL (11.5-16.0); IMMATURE GRAN ABSOLUTE AUTO 0.14 K/mm3 (0.00-0.10); IMMATURE GRAN PERCENT AUTO 1 % (0-1); LYMPHOCYTES ABSOLUTE AUTO 2.02 K/mm3 (0.84-5.20); LYMPHOCYTES PERCENT AUTO 14 % (21-46); MONOCYTES ABSOLUTE AUTO 1.58 K/mm3 (0.16-1.47); MONOCYTES PERCENT AUTO 11 % (4-13); Mean Corpuscular HGB 35.8 pg (26.0-34.0); Mean Corpuscular HGB Conc 34.2 g/dL (31.5-36.5); Mean Corpuscular Volume 105 fL (80-100); Mean Platelet Volume 12.1 fL (9.1-12.4); NEUTROPHILS ABSOLUTE AUTO 10.21 K/mm3 (1.96-9.15); NEUTROPHILS PERCENT AUTO 71 % (41-73); Platelet Count 156 K/mm3 (150-400); RDW Standard Deviation 68.6 fL (35.1-46.3); Red Blood Cell Count 2.68 M/mm3 (3.80-5.20); White Blood Cell Count 14.27 K/mm3 (4.00-11.30)
[2018-09-11 01:57] LABS: Alanine Aminotransfer (ALT/SGP 33 U/L (12-78); Albumin, Blood 1.5 g/dL (3.4-5.0); Albumin/Globulin Ratio 0.3 (0.8-1.8); Alk Phos 221 U/L (50-136); Anion Gap 8 mmol/L (6-16); Aspartate Aminotrans (AST/SGOT 108 U/L (12-37); Bilirubin, Total 6.9 mg/dL (0.1-1.0); Blood Urea Nitrogen 3 mg/dL (8-24); Bun/Creatinine Ratio 9.1 (12.0-20.0); CO2, Blood 27 mmol/L (21-32); Calcium, Blood 7.7 mg/dL (8.5-10.1); Chloride, Blood 99 mmol/L (98-108); Creatinine, Blood 0.33 mg/dL (0.40-1.00); Globulin, Blood 4.4 g/dL (2.2-4.0); Glomerular Filtration Rate >60 (60-); Glucose, Blood 99 mg/dL (70-99); Potassium, Blood 3.2 mmol/L (3.5-5.5); Sodium, Blood 134 mmol/L (136-145); Total Protein, Blood 5.9 g/dL (6.4-8.2)
[2018-09-11 02:30] LABS: Source, Urine Catheter
[2018-09-11 02:50] LABS: Appearance, Urine Cloudy (Clear); Blood, Urine 5+ (Neg); Color, Urine Amber (P-Yellow); Glucose Qualitative, Urine Neg (Neg); Ketones, Urine 1+ (Neg); Leukocyte Esterase, Urine 3+ (Neg); Nitrite, Urine Pos (Neg); Protein, Urine 2+ (Neg); Specific Gravity, Urine 1.015 (1.003-1.022); Urobilinogen, Urine 2+ (Normal)
[2018-09-11 02:51] LABS: Bilirubin, Urine 3+ (Neg)
[2018-09-11 02:55] LABS: Bacteria Many /hpf; Squamous Epithelial Cells Many /hpf (Few); White Blood Cells, Urine 50-100 /hpf (0-5)
[2018-09-11 02:57] LABS: Other Crystals Few /hpf
[2018-09-11 05:59] LABS: Hematocrit 26.9 % (33.0-51.0); Hemoglobin 9.1 g/dL (11.5-16.0); Mean Corpuscular HGB 35.3 pg (26.0-34.0); Mean Corpuscular HGB Conc 33.8 g/dL (31.5-36.5); Mean Corpuscular Volume 104 fL (80-100); Platelet Count 130 K/mm3 (150-400); RDW Coefficient Variation 17.8 % (11.7-14.2); RDW Standard Deviation 67.8 fL (35.1-46.3); Red Blood Cell Count 2.58 M/mm3 (3.80-5.20); White Blood Cell Count 4.27 K/mm3 (4.00-11.30)
[2018-09-11 06:18] LABS: Alanine Aminotransfer (ALT/SGP 31 U/L (12-78); Albumin, Blood 1.4 g/dL (3.4-5.0); Albumin/Globulin Ratio 0.3 (0.8-1.8); Alk Phos 219 U/L (50-136); Anion Gap 12 mmol/L (6-16); Aspartate Aminotrans (AST/SGOT 106 U/L (12-37); Blood Urea Nitrogen 3 mg/dL (8-24); Bun/Creatinine Ratio 9.9 (12.0-20.0); CO2, Blood 23 mmol/L (21-32); Calcium, Blood 7.6 mg/dL (8.5-10.1); Chloride, Blood 100 mmol/L (98-108); Globulin, Blood 4.1 g/dL (2.2-4.0); Glomerular Filtration Rate >60 (60-); Glucose, Blood 111 mg/dL (70-99); Potassium, Blood 3.3 mmol/L (3.5-5.5); Sodium, Blood 135 mmol/L (136-145); Total Protein, Blood 5.5 g/dL (6.4-8.2)
[2018-09-11 08:51] LABS: International Normalized Ratio 1.69; Prothrombin Time Results 17.1 Sec (9.7-11.5)
[2018-09-11 11:19] LABS: Automated BF WBC Count 0.048 K/mm3 (0-999); Body Fluid WBC Count 48 /mm3 (0-999)
[2018-09-11 11:38] LABS: Albumin, Body Fluid 0.3 g/dL; Lactate Dehydrogenase, Body Fl 27 U/L
[2018-09-11 12:25] LABS: RBC Count, Body Fluid 111 /mm3 (0-0)
[2018-09-11 12:33] LABS: Appearance, Body Fluid Clear (Clear); Color, Body Fluid Yellow (None-Yellow)
[2018-09-11 12:34] LABS: Total Cell Count, Body Fluid 100
--- NOTE | 2018-09-11 18:01 | NUR ---
SHIFT SUMMARY 0800 PT ARRIVED FROM ER. ALERT AND ORIENTED X3. C/O 8-03/07 ABDOMINAL PAIN, MEDICATED WITH PRN PAIN MEDS. LUNG SOUNDS CLEAR, SINUS TACHYCARDIA ON TELEMETRY. DISTENDED ABDOMEN NOTED, FIRM AND TENDER ON PALPATION. PT HAD PARACENTESIS THIS MORNING, 1.5 L REMOVED AND SENT TO LAB. SKIN IS JAUNDICED, BUT OTHERWISE INTACT, SOME BRUISING NOTED. 1+ PITTING EDEMA TO BLE. AT BEDSIDE THROUGHOUT THE DAY. PT UNABLE TO VOID THIS MORNING, BLADDER SCAN READ 534 ML, STRAIGHT CATH ORDERED. STRAIGHT CATH PERFORMED USING STERILE TECHNIQUE, 200 ML OF KEVIN CLOUDY THICK URINE DRAINED FROM BLADDER. PT UP TO BEDSIDE COMMODE THIS AFTERNOON WITH HER 'S HELP, VOIDING IN BSC. WILL CONTINUE TO MONITOR.
--- NOTE | 2018-09-11 22:26 | NUR ---
PCU NIGHTSHIFT ASSUMED CARE OF PT APPROX. 1900. PT A&O X4. ASSESSMENT COMPLETED. VITAL SIGNS STABLE. PT HEART RHYTHM SINUS TACHYCARDIA IN 100'S. PT REPORTS PAIN IN ABDOMEN, PRN PAIN MEDICATION GIVEN PER EMAR FOR THIS. PT ABDOMEN DISTENDED, FIRM AND TENDER. PT HAS SCATTERED BRUISING ON EXTREMITIES. EDEMA BLE +1. PT AT BEDSIDE. BED IN LOW POSTION, CALL LIGHT IN REACH AND PT DENIES ANY NEEDS AT THIS TIME. WILL CONTINUE TO MONITOR.
--- NOTE | 2018-09-12 02:00 | NUR ---
NOTE WHEN TAKING PT VITAL SIGNS AROUND 0000. PT TEMPERATUVE ELEVATED. TURNED TEMPEARTURE DOWN IN ROOM, REMOVED A COUPLE OF BLANKETS FROM PT, PROVIDED PT WITH ICE AND SOMETHING COLD TO DRINK AND PLACE A COOL RAG ON PT FORHEAD. RECHECKED ABOUT 50 MINUTES LATER AND FOUND TEMPATURE TO BE DECREASED. WILL CONTINUE TO MONITOR.
[2018-09-12 04:00] LABS: BASOPHILS ABSOLUTE AUTO 0.09 K/mm3 (0.00-0.23); BASOPHILS PERCENT AUTO 1 % (0-2); EOSINOPHILS ABSOLUTE AUTO 0.12 K/mm3 (0.00-0.68); EOSINOPHILS PERCENT AUTO 1 % (0-6); Hematocrit 30.1 % (33.0-51.0); Hemoglobin 9.9 g/dL (11.5-16.0); IMMATURE GRAN ABSOLUTE AUTO 0.21 K/mm3 (0.00-0.10); IMMATURE GRAN PERCENT AUTO 2 % (0-1); LYMPHOCYTES ABSOLUTE AUTO 1.47 K/mm3 (0.84-5.20); LYMPHOCYTES PERCENT AUTO 12 % (21-46); MONOCYTES PERCENT AUTO 13 % (4-13); Mean Corpuscular HGB 35.6 pg (26.0-34.0); Mean Corpuscular HGB Conc 32.9 g/dL (31.5-36.5); NEUTROPHILS ABSOLUTE AUTO 9.12 K/mm3 (1.96-9.15); NEUTROPHILS PERCENT AUTO 72 % (41-73); Platelet Count 149 K/mm3 (150-400); RDW Coefficient Variation 18.3 % (11.7-14.2); RDW Standard Deviation 72.8 fL (35.1-46.3); Red Blood Cell Count 2.78 M/mm3 (3.80-5.20); White Blood Cell Count 12.71 K/mm3 (4.00-11.30)
[2018-09-12 04:06] LABS: Mean Corpuscular Volume 108 fL (80-100)
[2018-09-12 04:21] LABS: Alanine Aminotransfer (ALT/SGP 32 U/L (12-78); Albumin, Blood 1.7 g/dL (3.4-5.0); Albumin/Globulin Ratio 0.4 (0.8-1.8); Alk Phos 210 U/L (50-136); Anion Gap 10 mmol/L (6-16); Aspartate Aminotrans (AST/SGOT 112 U/L (12-37); Bilirubin, Total 7.5 mg/dL (0.1-1.0); Blood Urea Nitrogen 3 mg/dL (8-24); Bun/Creatinine Ratio 12.6 (12.0-20.0); CO2, Blood 24 mmol/L (21-32); Calcium, Blood 7.7 mg/dL (8.5-10.1); Chloride, Blood 105 mmol/L (98-108); Creatinine, Blood 0.24 mg/dL (0.40-1.00); Globulin, Blood 4.2 g/dL (2.2-4.0); Glomerular Filtration Rate >60 (60-); Glucose, Blood 116 mg/dL (70-99); Potassium, Blood 3.2 mmol/L (3.5-5.5); Sodium, Blood 139 mmol/L (136-145); Total Protein, Blood 5.9 g/dL (6.4-8.2)
--- NOTE | 2018-09-12 06:08 | NUR ---
SHIFT SUMMARY PT PLEASANT, COOPERATIVE AND USES CALL LIGHT APPROPRIATELY. PT REMAINS A&O X4, VITAL SIGNS STABLE, ALTHOUGHT TEMPARTURE SLIGHTLY INCREASED AT TIMES. COOL RAG ON FOREHEAD WAS PLACED, BLANKETS REMOVED AND TEMPERATURE TURNED DOWN IN ROOM WITH INCREASE, WHICH HELPED TO BRING DOWN TEMPERATURE. HEART RHYTHM REMAINS SIUNS TACHYCARDIA W/ HEART RATE 100'S. ASSESSMENT FINDINGS REMAIN UNCHANGED FROM ASSESSMENT AT BEGINNING OF SHIFT. PT HAD INCREASED PAIN IN ABDOMEN INTERMITENTLY. PRN PAIN MEDICATION GIVEN PER EMARY TO HELP WITH THIS. RECIEVED MORNING LABS AND POTASSIUM SLGIHTLY LOW. PMD NOTIFIED AND NEW ORDERES PLACES, THESE WERE THEN GIVEN PER EMAR. PT REMAINS AT BEDSIDE T/O SHIFT. BED IN LOW POSITION, CALL LIGHT IN REACH AND PT DENIES ANY NEEDS AT THIS TIME. WILL CONTINUE TO MONITOR UNTIL HANDOFF TO DAYSHIFT RN.
--- NOTE | 2018-09-12 14:54 | NUR ---
Adnvance Directive education/Spiritual care visit conducted. Patient was lying in bed and alert when I entered the patient's room. Patient's , Iglesia, was bedside. Patient and Iglesia openly shared about their family and patient's medical history. I asked if they were familiar with the advance directive forms. Iglesia answered that they already had this discussion with a nurse, that they have the forms at home and that they had not discusseed it together yet. I appauded Iglesia for his care of the patient and the patient for her courage and perserverance. Patient and Iglesia thanked me for the visit.
--- NOTE | 2018-09-12 19:05 | NUR ---
SHIFT SUMMARY: PATIENT XFR FROM PCU-10 THIS SHIFT. PT A&O; CALM AND COOPERATIVE WITH CARE. PT C/O LOW ABD PAIN; NO PAIN MEDS AVAILABLE SINCE ARRIVAL ON MEDICAL. PT OUTSIDE TO SMOKE SEVERAL TIMES T/O SHIFT. IN ROOM. IV ABX CONTINUING. REPORT GIVEN TO ONCOMING RN.
--- NOTE | 2018-09-13 03:40 | NUR ---
SHIFT SUMMARY NO ACUTE CHANGES TO PRESENT THIS SHIFT. PT IS A&O, JAUNDICED WITH ASCITES R/T ALCOHOLIC CIRRHOSIS. CALLS FOR IV PAIN MED WHEN AVAILABLE FOR LOWER ABD. CALLS FREQUENTLY W/A FOR DRINKS AND SNACKS. PT'S STAYS IN WELL. CURRENT SMOKER, BUT HAS NOT GONE OUT TO [facility]. CALL LT IN REACH. ABLE TO MAKE NEEDS KNOWN.
[2018-09-13 05:28] LABS: Anion Gap 9 mmol/L (6-16); Blood Urea Nitrogen 3 mg/dL (8-24); Bun/Creatinine Ratio 13.1 (12.0-20.0); CO2, Blood 23 mmol/L (21-32); Calcium, Blood 8.2 mg/dL (8.5-10.1); Chloride, Blood 104 mmol/L (98-108); Creatinine, Blood 0.23 mg/dL (0.40-1.00); Glomerular Filtration Rate >60 (60-); Glucose, Blood 84 mg/dL (70-99); Potassium, Blood 3.9 mmol/L (3.5-5.5); Sodium, Blood 136 mmol/L (136-145)
--- NOTE | 2018-09-13 19:17 | NUR ---
SHIFT SUMMARY: NO ACUTE CHANGES TO REPORT THIS SHIFT. PT A&O; CALM AND COOPERATIVE WITH CARE. MEDICATED FOR ABD PAIN PER EMAR. PT OUTSIDE TO SMOKE VIA WHEELCHAIR SEVERAL TIMES THIS SHIFT. IV ABX CONTINUING. REPORT GIVEN TO ONCOMING RN.
--- NOTE | 2018-09-14 02:39 | NUR ---
PATIENT STILL UP WATCHING TV WITH . REPORTS ABDOMEN PAIN AND RECEIVED IV FENTANYL 50 MCG PER EMAR. CALL LIGHT IN REACH.
--- NOTE | 2018-09-14 03:09 | NUR ---
SHIFT SUMMARY PATIENT HAD NO ACUTE CHANGES OBSERVED THIS SHIFT. AXOX 4 AND INDEPENDENT IN ROOM. PATIENT REPORTS ABDOMINAL PAIN X 2 AND RECEIVED FENTANYL 50 MCG IV PER EMAR. PATIENT REPORTS PAIN IS CONTROLLED FOR 3 HRS. PIV REMAINS INTACT. IV ABXS INFUSED. VSS/AFEBRILE. STAYS IN ROOM FOR SHIFT. PATIENT AND SPOUSE UP WATCHING TV MOST OF THE SHIFT. CURRENT SMOKER BUT DID NOT GO OUTSIDE TO SMOKE THIS SHIFT. CALL LIGHT IN REACH. BED IN LOWEST POSITION. WILL CONTINUE TO MONITOR UNTIL DAY SHIFT NURSE ASSUMES CARE.
[2018-09-14 04:51] LABS: Anion Gap 8 mmol/L (6-16); Blood Urea Nitrogen 3 mg/dL (8-24); Bun/Creatinine Ratio 10.2 (12.0-20.0); CO2, Blood 27 mmol/L (21-32); Calcium, Blood 7.5 mg/dL (8.5-10.1); Chloride, Blood 100 mmol/L (98-108); Creatinine, Blood 0.29 mg/dL (0.40-1.00); Glomerular Filtration Rate >60 (60-); Glucose, Blood 149 mg/dL (70-99); Potassium, Blood 2.9 mmol/L (3.5-5.5); Sodium, Blood 135 mmol/L (136-145)
--- NOTE | 2018-09-14 07:10 | NUR ---
PT. BEING PUSHED OUTSIDE TO SMOKE AT THIS TIME.
--- NOTE | 2018-09-14 10:10 | NUR ---
PT. REPORTING PAIN IN ABDOMEN AND REQUESTING IV PAIN MEDICATION SO SHE CAN GO OUTSIDE AND SMOKE.
--- NOTE | 2018-09-14 11:30 | NUR ---
PT. IV WOULD NOT FLUSH. WILL DC IV ALSO
--- NOTE | 2018-09-14 12:41 | NUR ---
PT. OUTSIDE TO SMOKE ONCE AGAIN, BEING PUSHED IN WHEEL CHAIR BY SPOUSE.
--- NOTE | 2018-09-14 17:22 | NUR ---
PT SOUND ASLEEP AFTER TAKING ROXICODONE
--- NOTE | 2018-09-15 01:40 | NUR ---
PATIENT CONTINUES TO ASK STAFF FOR PAIN MEDICATIONS. THIS RN ADMINISTERED TYLENOL WITH PM MEDICATIONS ORDERED, AT THAT TIME PT STATED SHE FELT THE TYLENOL WOULD NOT TOUCH HER PAIN. THIS RN EDUCATED THAT IT WAS IMPORTANT TO GIVE THE MEDICATION A TRY. PATIENT WAS ASLEEP SHORTLY AFTER MEDICATIONS WERE GIVEN. PATIENT AWOKE AROUND 0100 AND REQUESTED MORE PAIN MEDICATIONS. PT WAS GIVEN EDUCATED AGAIN ABOUT MEDICATIONS AND THAT DR. ANTUNEZ REPORTED IN HIS NOTES THAT PT DOES NOT REQUIRE IV FENTANYL. WARM BLANKETS AND REPOSITIONING WERE ALTERNATIVE NON-PHARMACOLOGICAL MEASURES DONE.
--- NOTE | 2018-09-15 03:24 | NUR ---
PATIENT CALLED REQUESTING SOMETHING STRONGER THAN TYLENOL FOR PAIN AND A SLEEPING PILL. CALLED HOSPITALIST AND REPORTED DR. ANTUNEZ'S NOTES REGARDING PAIN CONTROL FOR PT. NEW ORDERS FOR PRN FENTANYL RECIEVED SEE EMAR.
--- NOTE | 2018-09-15 07:19 | NUR ---
*SHIFT SUMMARY* PT IS ALERT AND ORIENTED. PATIENT COMPLAINED OF ABDOMINAL PAIN THROUGHOUT THE NIGHT. ADMINISTERED PAIN MEDICATIONS ORDERED SEE EMAR. NO RELIEF OBTAINED. NEW ORDERS FOR OT PAIN MEDS. PT IS INDEPENDENT IN ROOM, AT BEDSIDE. VITALS STABLE.
[2018-09-15 08:23] LABS: Anion Gap 6 mmol/L (6-16); Blood Urea Nitrogen 4 mg/dL (8-24); Bun/Creatinine Ratio 17.5 (12.0-20.0); CO2, Blood 27 mmol/L (21-32); Calcium, Blood 7.7 mg/dL (8.5-10.1); Chloride, Blood 101 mmol/L (98-108); Creatinine, Blood 0.23 mg/dL (0.40-1.00); Glomerular Filtration Rate >60 (60-); Glucose, Blood 141 mg/dL (70-99); Potassium, Blood 3.6 mmol/L (3.5-5.5); Sodium, Blood 134 mmol/L (136-145)
--- NOTE | 2018-09-15 18:16 | NUR ---
SHIFT SUMMARY PATIENT A&O X4, INDEPENDENT IN THE ROOM. C/O LOWER ABDOMINAL PAIN THROUGHOUT THE SHIFT. RN MEDICATED PER Aug. DENIES ANY SOB OR NAUSEA. NO IV ACCESS. GOES OUT TO SMOKE MULTIPLE TIMES A SHIFT. WENT FOR A PARACENTESIS TODAY. NO ACUTE CHANGES. IS AT THE BEDSIDE. RN WILL CONTINUE TO MONITOR.
[2018-09-16 04:48] LABS: Anion Gap 8 mmol/L (6-16); Blood Urea Nitrogen 4 mg/dL (8-24); Bun/Creatinine Ratio 13.5 (12.0-20.0); CO2, Blood 26 mmol/L (21-32); Calcium, Blood 7.8 mg/dL (8.5-10.1); Chloride, Blood 103 mmol/L (98-108); Glomerular Filtration Rate >60 (60-); Glucose, Blood 113 mg/dL (70-99); Potassium, Blood 3.6 mmol/L (3.5-5.5); Sodium, Blood 137 mmol/L (136-145)
--- NOTE | 2018-09-16 05:58 | NUR ---
*SHIFT SUMMARY* PT IS ALERT AND ORIENTED ON ROOM AIR. COMPLAINS OF LOWER ABDOMINAL PAIN. PT INDEPENDENT IN ROOM. SLEEPS AT BEDSIDE. PT GOES OUTSIDE TO SMOKE WITH . VITAL SIGNS ARE STABLE.
[2018-09-16] MEDS ORDERED: ACET325 PO (12:17)
[2018-09-16] MEDS ORDERED: FURO40 PO (12:20)
[2018-09-16] MEDS ORDERED: CIPR500 PO (12:20)
[2018-09-16] MEDS ORDERED: SPIR50 PO (12:21)
--- NOTE | 2018-09-16 15:27 | NUR ---
DISCHARGE SUMMARY PATIENT A&O X4, INDEPENDENT IN THE ROOM. DISCHARGE INFORMATION REVIEWED. MEDICATIONS FAXED TO [facility]. NO IV ACCESS. PATIENT ESCORTED OUT BY DRAG SEINER IN WHEELCHAIR. ALL BELONGINGS IN HAND.
== END 2018-09-16 13:18 | disposition home or self-care (01) | DRG 433 ==
LOC: ER 01:04 → PCU 04:02 → ERHOLD 04:02 → PCU 07:58 → MEDS 09-12 18:10 → EDPENDDIS 09-15 11:13 → ENPENDDIS 09-15 11:13 → MEDS 09-16 13:18
PROVIDERS: Emergency Medicine; Hospitalist; ADMIT Internal Medicine
PROC: 0W9G3ZZ Drainage of Peritoneal Cavity, Percutaneous Approach (ICD-10-PCS; principal; 2018-09-11)
DX: K70.31 Alcoholic cirrhosis of liver with ascites (principal); N39.0 Urinary tract infection, site not specified; K70.11 Alcoholic hepatitis with ascites; F10.20 Alcohol dependence, uncomplicated; Z51.5 Encounter for palliative care; E87.6 Hypokalemia; I95.9 Hypotension, unspecified; D69.6 Thrombocytopenia, unspecified; K29.80 Duodenitis without bleeding; F17.210 Nicotine dependence, cigarettes, uncomplicated; E86.0 Dehydration; G89.29 Other chronic pain; B96.20 Unspecified Escherichia coli [E. coli] as the cause of diseases classified elsewhere
CPT/HCPCS: 36415; 49083; 51701; 74176; 76705; 80048; 80053; 81001; 82042; 82140; 83615; 83690; 83735; 85025; 85027; 85610; 85730; 87077; 87086; 87186; 88108; 89051; 96361; 96365; 96375; 99284-25; J0696; J1650; J3010; J3475; J3480; J7030; J7050; P9046; P9612

== ENCOUNTER 2018-09-28 16:22 | Emergency (ER) | payer OTHER ==
[~2018-09-28] VITALS: Ht 167.6 cm; Wt 52.2 kg
[~2018-09-28 16:22] MED LIST changes: +ACET325 PO; +CIPR500 PO; +SPIR50 PO
[2018-09-28 18:36] LABS: BASOPHILS ABSOLUTE AUTO 0.07 K/mm3 (0.00-0.23); BASOPHILS PERCENT AUTO 1 % (0-2); EOSINOPHILS ABSOLUTE AUTO 0.08 K/mm3 (0.00-0.68); EOSINOPHILS PERCENT AUTO 1 % (0-6); Hematocrit 39.1 % (33.0-51.0); Hemoglobin 12.9 g/dL (11.5-16.0); IMMATURE GRAN ABSOLUTE AUTO 0.12 K/mm3 (0.00-0.10); IMMATURE GRAN PERCENT AUTO 1 % (0-1); LYMPHOCYTES ABSOLUTE AUTO 2.13 K/mm3 (0.84-5.20); LYMPHOCYTES PERCENT AUTO 17 % (21-46); MONOCYTES PERCENT AUTO 8 % (4-13); Mean Corpuscular HGB 35.1 pg (26.0-34.0); NEUTROPHILS ABSOLUTE AUTO 9.22 K/mm3 (1.96-9.15); NEUTROPHILS PERCENT AUTO 73 % (41-73); RDW Coefficient Variation 16.5 % (11.7-14.2); RDW Standard Deviation 64.8 fL (35.1-46.3); Red Blood Cell Count 3.67 M/mm3 (3.80-5.20); White Blood Cell Count 12.62 K/mm3 (4.00-11.30)
[2018-09-28 18:39] LABS: Mean Corpuscular Volume 107 fL (80-100); Mean Platelet Volume 10.9 fL (9.1-12.4); Platelet Count 215 K/mm3 (150-400)
[2018-09-28 19:08] LABS: Alanine Aminotransfer (ALT/SGP 39 U/L (12-78); Albumin, Blood 2.3 g/dL (3.4-5.0); Albumin/Globulin Ratio 0.3 (0.8-1.8); Alk Phos 348 U/L (50-136); Anion Gap 13 mmol/L (6-16); Aspartate Aminotrans (AST/SGOT 195 U/L (12-37); Blood Urea Nitrogen 4 mg/dL (8-24); Bun/Creatinine Ratio 13.4 (12.0-20.0); CO2, Blood 21 mmol/L (21-32); Calcium, Blood 8.9 mg/dL (8.5-10.1); Chloride, Blood 97 mmol/L (98-108); Globulin, Blood 7.2 g/dL (2.2-4.0); Glomerular Filtration Rate >60 (60-); Glucose, Blood 92 mg/dL (70-99); Potassium, Blood 3.7 mmol/L (3.5-5.5); Sodium, Blood 131 mmol/L (136-145); Total Protein, Blood 9.5 g/dL (6.4-8.2)
[2018-09-28 19:46] LABS: Source, Urine Clean Catch
[2018-09-28 19:48] LABS: Bilirubin, Urine Neg (Neg); Blood, Urine Neg (Neg); Glucose Qualitative, Urine Neg (Neg); Ketones, Urine Neg (Neg); Leukocyte Esterase, Urine Neg (Neg); Nitrite, Urine Neg (Neg); Protein, Urine Neg (Neg); Urobilinogen, Urine NORM (Normal)
[2018-09-28 19:55] LABS: Appearance, Urine Clear (Clear); Color, Urine Yellow (P-Yellow)
== END 2018-09-28 19:38 | disposition home or self-care (01) ==
LOC: ER 16:22
PROVIDERS: Emergency Medicine
DX: K70.40 Alcoholic hepatic failure without coma (principal); E87.1 Hypo-osmolality and hyponatremia; D72.829 Elevated white blood cell count, unspecified; Z88.6 Allergy status to analgesic agent; Z88.0 Allergy status to penicillin; Z88.5 Allergy status to narcotic agent; Z79.899 Other long term (current) drug therapy; F17.210 Nicotine dependence, cigarettes, uncomplicated
CPT/HCPCS: 36415; 80053; 81003; 83690; 85025; 99283